=== PATIENT | female | born 1945 | race Caucasian/White ===

== ENCOUNTER 2016-09-26 06:36 | Day surgery (SDC) | payer MEDICAID, MEDICARE ==
[2016-09-26 07:02] VITALS: BP 162/77
== END 2016-09-26 08:17 | disposition other institution (70) ==
LOC: JP.SDS 06:36
PROVIDERS: ATTEND Surgery
DX: Z43.1 Encounter for attention to gastrostomy (principal); Z53.8 Procedure and treatment not carried out for other reasons; Z88.8 Allergy status to other drugs, medicaments and biological substances; Z87.891 Personal history of nicotine dependence; Z79.899 Other long term (current) drug therapy

== ENCOUNTER 2017-08-27 16:44 | Inpatient (IN) | payer MEDICARE ==
[2017-08-27] MEDS ORDERED: Prochlorperazine 10 MG/2 ML SDV IVPUSH ONE (17:22)
--- NOTE | 2017-08-27 17:29 | EDM.PDOC ---
ED HPI GENERAL MEDICAL PROBLEM - General Chief Complaint: Gastrointestinal Problem Stated Complaint: MEDICAL VIA [facility] Time Seen by Provider: 08/27/17 17:00 Source of Information: Reports: Patient, EMS History Limitations: Reports: No Limitations - History of Present Illness INITIAL COMMENTS - FREE TEXT/NARRATIVE: 72-year-old female that has a chronic G-tube after jaw and facial surgery, has been having abdominal pain and discomfort across the upper abdomen for several days, with 2 days of nausea and vomiting. She has an appointment with the surgery tomorrow to assess the G-tube, but developed persistent nausea and vomiting over the past 36 hours. She does not present a septic, is not hypotensive severe tachypneic and has no significant fever. She is uncomfortable. When asked if her bowels are moving she just says "I don't know". Onset: Gradual (Over the past several days) Severity: Moderate Associated Symptoms: Reports: Loss of Appetite, Malaise, Nausea/Vomiting. Denies: Chest Pain, Cough, Diaphoresis Middle Abdomen Pain Score (Numeric/FACES): 10 - Related Data Allergies Allergy/AdvReac Type Severity Reaction Status Date / Time ondansetron Allergy Rash Verified 09/26/16 06:47 hydrochlorothiazide AdvReac Nausea Verified 09/26/16 06:47 Home Meds: Home Meds Losartan [Cozaar] 100 mg PO DAILY 06/26/16 [History] fentaNYL [Fentanyl] 100 mcg TOP Q72H 06/26/16 [History] Aspirin [Ecotrin] 81 mg PO DAILY 06/30/16 [History] Cyanocobalamin (Vitamin B12) [Vitamin B12] 1,000 mcg IM ASDIRECTED 06/30/16 [ History] Hypromellose [Genteal Mild] 1 drop EYEBOTH BEDTIME 06/30/16 [History] Loperamide [Imodium] 2 mg PO DAILY 06/30/16 [History] Pravastatin Sodium [Pravachol] 20 mg PO BEDTIME 06/30/16 [History] Prochlorperazine Maleate [Compazine] 10 mg PO Q6H PRN 06/30/16 [History] Scopolamine [Transderm-Scop] 1 patch TOP ASDIRECTED 06/30/16 [History] Acetaminophen [Tylenol] 650 mg PO Q4H PRN #0 tablet 07/07/16 [Rx] Acetaminophen/HYDROcodone [[place] 325-10 MG] 1 tab PO Q4H PRN #30 tablet [Rx] Sucralfate [Carafate] 0.5 gm PO QID #100 ml 07/07/16 [Rx] Bevzi-N-Vpjkhqhwacyax [Beano] 2 tab PO QID 09/22/16 [History] Gabapentin [Neurontin] 300 mg PO TID 09/22/16 [History] Omeprazole Magnesium [Prilosec Otc] 40 mg PO DAILY 09/22/16 [History] Clotrimazole [Clotrimazole 1%] 1 applic TOP BID 09/26/16 [History] Potassium Chloride [Potassium Chloride Solution] 20 meq GTUBE DAILY 09/26/16 [ History] Propranolol HCl [Inderal Xl] 120 mg PO TID 08/27/17 [History] Past Medical History HEENT History: Reports: Cataract, Impaired Vision Cardiovascular History: Reports: High Cholesterol, Hypertension Gastrointestinal History: Reports: Chronic Constipation, Chronic Diarrhea Genitourinary History: Reports: None 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: Dysfunctional Uterine Bleeding, , Other (See Below) Other OB/BYN History: hysterectomy - ovaries remain she thinks Musculoskeletal History: Reports: Back Pain, Chronic Other Musculoskeletal History: 4 back surgeries - herniated discs Neurological History: Reports: None Hematologic History: Reports: B12 Deficiency Other Oncologic History: oral cancer - questionable smoking - Infectious Disease History Infectious Disease History: Reports: Chicken Pox, Measles, Mumps Other Infectious Disease History: does not remember - Past Surgical History Female Surgical History: Reports: Hysterectomy Neurological Surgical History: Reports: Lumbar Spine Social & Family History - Family History Family Medical History: Noncontributory - Tobacco Use Smoking Status *Q: Former Smoker Years of Tobacco use: 1 Used Tobacco, but Quit: Yes Month/Year Tobacco Last Used: many years ago Second Hand Smoke Exposure: No - Caffeine Use Caffeine Use: Reports: None - Recreational Drug Use Recreational Drug Use: No ED ROS GENERAL - Review of Systems Review Of Systems: See Below Constitutional: Reports: Malaise, Weakness. 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 No: Tachycardia GI/Abdominal Exam: Soft, Tender (Patient has significant tenderness to palpation over the entire abdomen, seems to be more across the upper abdomen), Abnormal Bowel Sounds (Bowel sounds are hypoactive but present), Other (G-tube is in place, there appears to be no inflammation or significant redness at the G -tube port) Extremities: Pedal Edema (trace bilateral edema) Neurological: Alert, Oriented, No Motor/Sensory Deficits Psychiatric: Flat Affect Skin Exam: Warm, Dry Course - Vital Signs Last Recorded V/S: Last Vital Signs Temp 99.0 F 08/28/17 02:55 Pulse 66 08/28/17 02:55 Resp 16 08/28/17 02:55 BP 145/70 H 08/28/17 02:55 Pulse Ox 96 08/28/17 02:55 - Orders/Labs/Meds Orders: Active Orders 24 hr Category Date Time Status Abdomen 2V AP Flat Upright [CR] Stat Exams 08/27/17 17:19 Taken UA W/MICROSCOPIC [URIN] Stat Lab 08/27/17 20:08 Ordered Sodium Chloride 0.9% [Normal Saline] 1,000 ml Med 08/27/17 20:15 Active IV ASDIRECTED Medication Orders Albuterol (Proventil Neb Soln) 2.5 mg NEB Q4H PRN PRN Reason: Shortness Of Breath/wheezing Albuterol/Ipratropium (Duoneb 3.0-0.5 Mg/3 Ml) 3 ml NEB QID PRN PRN Reason: Shortness Of Breath/wheezing Clotrimazole (Lotrimin Af 1% Crm) 0 gm TOP BID GADIEL Last Admin: 08/27/17 21:55 Dose: 1 applic Fentanyl (Duragesic) 100 mcg TOP Q72H GADIEL Sodium Chloride (Normal Saline) 1,000 mls @ 100 mls/hr IV ASDIRECTED GADIEL Last Admin: 08/28/17 06:26 Dose: 100 mls/hr Infusion: 08/28/17 06:14 Dose: 100 mls/hr Admin: 08/27/17 20:14 Dose: 100 mls/hr Ampicillin Sodium/Sulbactam (Sodium 1.5 gm/ Sodium Chloride) 50 mls @ 100 mls/ hr IV Q6H GADILE Last Admin: 08/28/17 03:02 Dose: 100 mls/hr Admin: 08/27/17 21:56 Dose: 100 mls/hr Prochlorperazine Edisylate 5 (mg/ Sodium Chloride) 51 mls @ 150 mls/hr IV Q6H PRN PRN Reason: Nausea/Vomiting Lorazepam (Ativan) 1 mg IV Q6H PRN PRN Reason: Nausea/Vomiting Losartan Potassium (Cozaar) 100 mg PO DAILY [facility] Morphine Sulfate (Morphine) 2 mg IVPUSH Q2H PRN PRN Reason: Abdominal Pain Last Admin: 08/27/17 21:54 Dose: 2 mg Non-Formulary Medication (Hypromellose [Genteal Mild]) 1 drop EYEBOTH BEDTIME [facility] Non-Formulary Medication (Propranolol Hcl [Inderal Xl]) 120 mg PO TID [facility] Pantoprazole Sodium (Protonix Iv) 40 mg IV DAILY [facility] Last Admin: 08/27/17 21:56 Dose: 40 mg Scopolamine (Transderm-Scop) mg TOP ASDIRECTED [facility] Zolpidem Tartrate (Ambien) 5 mg PO BEDTIME PRN PRN Reason: Sleep Labs: Laboratory Tests 08/27/17 08/27/17 08/27/17 Range/Units 17:19 17:19 17:50 WBC 13.8 H (4.5-11.0) K/uL RBC 5.63 H (3.30-5.50) M/uL Hgb 15.3 H D (12.0-15.0) g/dL Hct 43.4 (36.0-48.0) % MCV 77 L (80-98) fL MCH 27 (27-31) pg MCHC 35 (32-36) % Plt Count 223 (150-400) K/uL Neut % (Auto) 79 H (36-66) % Lymph % (Auto) 8 L (24-44) % [place] % (Auto) 7 H (2-6) % Eos % (Auto) 6 H (2-4) % Baso % (Auto) 0 (0-1) % Sodium 136 L (140-148) mmol/L Potassium 3.6 (3.6-5.2) mmol/L Chloride 101 (100-108) mmol/L Carbon Dioxide 20 L (21-32) mmol/L Anion Gap 18.6 H (5.0-14.0) mmol/L BUN 24 H D (7-18) mg/dL Creatinine 1.1 H D (0.6-1.0) mg/dL Est Cr Clr Drug Dosing TNP Estimated GFR (MDRD) 49 L (>60) Glucose 117 H (74-106) mg/dL Lactic Acid 1.9 (0.4-2.0) mmol/L Calcium 9.4 D (8.5-10.1) mg/dL Total Bilirubin 1.0 D (0.2-1.0) mg/dL AST 22 (15-37) U/L ALT 13 (12-78) U/L Alkaline Phosphatase 162 H (46-116) U/L Total Protein 8.7 H (6.4-8.2) g/dL Albumin 3.2 L (3.4-5.0) g/dL Globulin 5.5 H (2.3-3.5) g/dL Albumin/Globulin Ratio 0.6 L (1.2-2.2) Amylase 64 (25-115) U/L Lipase 113 (73-393) U/L Urine Color Urine Appearance Urine pH (4.5-8.0) Ur Specific [place] (1.008-1.030) Urine Protein (NEGATIVE) mg/dL Urine Glucose (UA) (NEGATIVE) mg/dL Urine Ketones (NEGATIVE) mg/dL Urine Occult Blood (NEGATIVE) Urine Nitrite (NEGATIVE) Urine Bilirubin (NEGATIVE) Urine Urobilinogen (NORMAL) mg/dL Ur Leukocyte Esterase (NEGATIVE) Urine RBC (0-5) Urine WBC (0-5) Ur Epithelial Cells Amorphous Sediment Urine Bacteria Urine Mucus 08/27/17 Range/Units 20:08 WBC (4.5-11.0) K/uL RBC (3.30-5.50) M/uL Hgb (12.0-15.0) g/dL Hct (36.0-48.0) % MCV (80-98) fL MCH (27-31) pg MCHC (32-36) % Plt Count (150-400) K/uL Neut % (Auto) (36-66) % Lymph % (Auto) (24-44) % [place] % (Auto) (2-6) % Eos % (Auto) (2-4) % Baso % (Auto) (0-1) % Sodium (140-148) mmol/L Potassium (3.6-5.2) mmol/L Chloride (100-108) mmol/L Carbon Dioxide (21-32) mmol/L Anion Gap (5.0-14.0) mmol/L BUN (7-18) mg/dL Creatinine (0.6-1.0) mg/dL Est Cr Clr Drug Dosing Estimated GFR (MDRD) (>60) Glucose (74-106) mg/dL Lactic Acid (0.4-2.0) mmol/L Calcium (8.5-10.1) mg/dL Total Bilirubin (0.2-1.0) mg/dL AST (15-37) U/L ALT (12-78) U/L Alkaline Phosphatase (46-116) U/L Total Protein (6.4-8.2) g/dL Albumin (3.4-5.0) g/dL Globulin (2.3-3.5) g/dL Albumin/Globulin Ratio (1.2-2.2) Amylase (25-115) U/L Lipase (73-393) U/L Urine Color Yellow Urine Appearance Slightly cloudy Urine pH 7.0 (4.5-8.0) Ur Specific [place] 1.010 (1.008-1.030) Urine Protein 30 H (NEGATIVE) mg/dL Urine Glucose (UA) Normal (NEGATIVE) mg/dL Urine Ketones 15 H (NEGATIVE) mg/dL Urine Occult Blood Negative (NEGATIVE) Urine Nitrite Negative (NEGATIVE) Urine Bilirubin Negative (NEGATIVE) Urine Urobilinogen Normal (NORMAL) mg/dL Ur Leukocyte Esterase Negative (NEGATIVE) Urine RBC 0-5 (0-5) Urine WBC 0-5 (0-5) Ur Epithelial Cells Not seen Amorphous Sediment Few Urine Bacteria Not seen Urine Mucus Not seen Meds: Medications Generic Name Dose Route Start Last Admin Trade Name Freq PRN Reason Stop Dose Admin Albuterol 2.5 mg 08/27/17 21:15 Proventil Neb Soln NEB Q4H PRN Shortness Of Breath/wheezing Albuterol/Ipratropium 3 ml 08/27/17 21:15 Duoneb 3.0-0.5 Mg/3 Ml NEB QID PRN Shortness Of Breath/wheezing Clotrimazole 0 gm 08/27/17 21:15 08/27/17 21:55 Lotrimin Af 1% Crm TOP 1 applic BID GADIEL Administration Fentanyl 100 mcg 08/28/17 13:10 Duragesic TOP Q72H GADIEL Sodium Chloride 1,000 mls @ 100 mls/hr 08/27/17 20:15 08/28/17 06:26 Normal Saline IV 100 mls/hr ASDIRECTED GADIEL Administration Ampicillin Sodium/Sulbactam 50 mls @ 100 mls/hr 08/27/17 21:00 08/28/17 03:02 Sodium 1.5 gm/ Sodium Chloride IV 100 mls/hr Q6H GADIEL Administration Prochlorperazine Edisylate 5 51 mls @ 150 mls/hr 08/27/17 21:15 mg/ Sodium Chloride IV Q6H PRN Nausea/Vomiting Lorazepam 1 mg 08/27/17 21:15 Ativan IV Q6H PRN Nausea/Vomiting Losartan Potassium 100 mg 08/28/17 09:00 Cozaar PO DAILY GADIEL Morphine Sulfate 2 mg 08/27/17 21:15 08/27/17 21:54 Morphine IVPUSH 2 mg Q2H PRN Administration Abdominal Pain Non-Formulary Medication 1 drop 08/27/17 21:15 Hypromellose [Genteal Mild] EYEBOTH BEDTIME GADIEL Non-Formulary Medication 120 mg 08/27/17 21:15 Propranolol Hcl [Inderal Xl] PO TID GADIEL Pantoprazole Sodium 40 mg 08/27/17 21:15 08/27/17 21:56 Protonix Iv IV 40 mg DAILY GADIEL Administration Scopolamine mg 08/27/17 21:15 Transderm-Scop TOP ASDIRECTED GADIEL Zolpidem Tartrate 5 mg 08/27/17 21:15 Ambien PO BEDTIME PRN Sleep Discontinued Medications Generic Name Dose Route Start Last Admin Trade Name Shruthi PRN Reason Stop Dose Admin Sodium Chloride 1,000 mls @ 500 mls/hr 08/27/17 17:30 08/27/17 17:57 Normal Saline IV 500 mls/hr ASDIRECTED GADIEL Administration Labetalol HCl 10 mg 08/27/17 19:18 08/27/17 19:26 Normodyne IVPUSH 08/27/17 19:19 10 mg ONETIME ONE Administration Protocol Prochlorperazine Edisylate 5 mg 08/27/17 17:22 08/27/17 17:57 Compazine IVPUSH 08/27/17 17:23 5 mg ONETIME ONE Administration Propranolol HCl 120 mg 08/27/17 19:20 08/27/17 19:53 Inderal La PO 08/27/17 19:21 120 mg ONETIME ONE Administration - Re-Assessments/Exams Free Text/Narrative Re-Assessment/Exam: 08/27/17 18:09 CBC, CMP, amylase and lipase were obtained and a two-view abdominal x-ray considering the CT scan is not functioning. The x-ray showed no evidence of bowel obstruction. 08/27/17 18:58 White count was mildly elevated at 13.8, hemoglobin normal baseline. Lactic acid was normal. Hydration was started and the patient was given 5 mg of Compazine. She felt markedly better. The abdominal x-ray did not show a pattern of obstruction. She'll be admitted by the hospitalist service for symptom management and a surgical consult with CT scan tomorrow. Departure - Departure Time of Disposition: 21:45 Disposition: Admitted As Inpatient 66 Condition: Fair Clinical Impression: Abdominal pain of unknown cause, Complication of feeding tube - Discharge Information - My Orders Last 24 Hours: My Active Orders 08/27/17 17:19 Abdomen 2V AP Flat Upright [CR] Stat - Assessment/Plan Last 24 Hours: My Active Orders 08/27/17 17:19 Abdomen 2V AP Flat Upright [CR] Stat
[2017-08-27] MEDS ORDERED: Sodium Chloride 0.9% 1,000 ML IV SCH (17:30)
[2017-08-27] MEDS ORDERED: Labetalol 20 MG/4 ML Syringe IVPUSH ONE (19:18)
[2017-08-27] MEDS ORDERED: Propranolol 60 MG Cap.ER PO ONE (19:20)
[2017-08-27] MEDS: Sodium Chloride 0.9% 1,000 ML IV SCH (20:14)
[2017-08-27] MEDS ORDERED: Prochlorperazine 5 MG in Sodium Chloride 0.9% 50 ML IV PRN (21:15)
[2017-08-27] MEDS ORDERED: LORazepam 2 MG/ML SDV IV PRN (21:15)
[2017-08-27] MEDS ORDERED: Albuterol 0.083% 2.5 MG/3 ML Neb Soln NEB PRN (21:15)
[2017-08-27] MEDS ORDERED: HYPROMELLOSE EYEBOTH SCH (21:15)
[2017-08-27] MEDS ORDERED: Albuterol/Ipratropium 3.0-0.5 MG/3 ML Neb Soln NEB PRN (21:15)
[2017-08-27] MEDS ORDERED: Scopolamine 1.5 MG Transdermal Patch TOP SCH (21:15)
--- NOTE | 2017-08-27 21:31 | PCM.HP ---
H&P History of Present Illness - General Admit Problem/Dx: Admission Diagnosis/Problem Admission Diagnosis/Problem Abdominal pain of unknown cause Source of Information: Patient, EMS, Assisted Records, Provider, RN History Limitations: Reports: No Limitations - History of Present Illness Initial Comments - Free Text/Narative: history of present Illness: 72-year-old female that has a chronic G-tube after jaw and facial surgery, has been having abdominal pain and discomfort across the upper abdomen for several days, with 2 days of nausea and vomiting. She has an appointment with the surgery tomorrow to assess the G-tube, but developed persistent nausea and vomiting over the past 36 hours. She does not present a septic, is not hypotensive severe tachypneic and has no significant fever. She is uncomfortable. When asked if her bowels are moving she just says "I don't know" . Elevated blood pressure at 218/136 also noted, report no blood pressure medication given today at [facility]. reports headache, dizziness, nausea. denies chest pain or shortness of breath. Onset: Gradual, Over the past 4 days. Severity: Moderate Associated Symptoms: Reports: Loss of Appetite, Malaise, Nausea/Vomiting. Denies: Chest Pain, Cough, Diaphoresis Middle Abdomen Pain Score (Numeric/FACES): 10 Imaging, labs, medication ER: White count was mildly elevated at 13.8, hemoglobin 15.3 normal baseline. Lactic acid 1.9, na+136, K+3.6, cl 101, anion gap 18.6, bun 24, cr 1.1, gluc 117 , amlyase 64, lipase 113, occult stool negative, urine cath +ketone, negative wbc, blood,leukocytes. The abdominal x-ray did not show a pattern of obstruction. CT scan tomorrow. Hydration was started and the patient was given 5 mg of Compazine. She felt markedly better. given Labetolal 10 mg IV, Propranolol 120mg po, blood pressure at 162/81 admitted by the hospitalist service. Onset of Symptoms: Reports: Gradual Duration of Symptoms: Reports: Day(s): (3) Location: Reports: Abdomen, Generalized (weakness) Severity: Moderate Improves with: Reports: None Worsens with: Reports: Eating (unable to eat due to nausea and vomiting) Associated Symptoms: Reports: Headaches, Nausea/Vomiting, Weakness Middle Abdomen Pain Score (Numeric/FACES): 10 - Related Data Allergies/Adverse Reactions: Allergies Allergy/AdvReac Type Severity Reaction Status Date / Time ondansetron Allergy Rash Verified 09/26/16 06:47 hydrochlorothiazide AdvReac Nausea Verified 09/26/16 06:47 Home Medications: Home Meds Losartan [Cozaar] 100 mg PO DAILY 06/26/16 [History] fentaNYL [Fentanyl] 100 mcg TOP Q72H 06/26/16 [History] Aspirin [Ecotrin] 81 mg PO DAILY 06/30/16 [History] Cyanocobalamin (Vitamin B12) [Vitamin B12] 1,000 mcg IM ASDIRECTED 06/30/16 [ History] Hypromellose [Genteal Mild] 1 drop EYEBOTH BEDTIME 06/30/16 [History] Loperamide [Imodium] 2 mg PO DAILY 06/30/16 [History] Pravastatin Sodium [Pravachol] 20 mg PO BEDTIME 06/30/16 [History] Prochlorperazine Maleate [Compazine] 10 mg PO Q6H PRN 06/30/16 [History] Scopolamine [Transderm-Scop] 1 patch TOP ASDIRECTED 06/30/16 [History] Acetaminophen [Tylenol] 650 mg PO Q4H PRN #0 tablet 07/07/16 [Rx] Acetaminophen/HYDROcodone [[place] 325-10 MG] 1 tab PO Q4H PRN #30 tablet [Rx] Sucralfate [Carafate] 0.5 gm PO QID #100 ml 07/07/16 [Rx] Argfa-J-Nbrixvyyiuflk [Beano] 2 tab PO QID 09/22/16 [History] Gabapentin [Neurontin] 300 mg PO TID 09/22/16 [History] Omeprazole Magnesium [Prilosec Otc] 40 mg PO DAILY 09/22/16 [History] Clotrimazole [Clotrimazole 1%] 1 applic TOP BID 09/26/16 [History] Potassium Chloride [Potassium Chloride Solution] 20 meq GTUBE DAILY 09/26/16 [ History] Propranolol HCl [Inderal Xl] 120 mg PO TID 08/27/17 [History] Past Medical History HEENT History: Reports: Cataract, Impaired Vision Cardiovascular History: Reports: High Cholesterol, Hypertension Gastrointestinal History: Reports: Chronic Constipation, Chronic Diarrhea Genitourinary History: Reports: None [employer]CH[employer]ICIAN History: Reports: Dysfunctional Uterine Bleeding, , Other (See Below) Other OB/BYN History: hysterectomy - ovaries remain she thinks Musculoskeletal History: Reports: Back Pain, Chronic Other Musculoskeletal History: 4 back surgeries - herniated discs Neurological History: Reports: None Hematologic History: Reports: B12 Deficiency Other Oncologic History: oral cancer - questionable smoking - Infectious Disease History Infectious Disease History: Reports: Chicken Pox, Measles, Mumps Other Infectious Disease History: does not remember - Past Surgical History Female Surgical History: Reports: Hysterectomy Neurological Surgical History: Reports: Lumbar Spine Social & Family History - Family History Family Medical History: Noncontributory - Tobacco Use Smoking Status *Q: Former Smoker Years of Tobacco use: 1 Used Tobacco, but Quit: Yes Month/Year Tobacco Last Used: many years ago Second Hand Smoke Exposure: No - Caffeine Use Caffeine Use: Reports: None - Recreational Drug Use Recreational Drug Use: No H&P Review of Systems - Review of Systems: Review Of Systems: See Below General: Reports: Weakness HEENT: Reports: Headaches, Other (hx of jaw and neck cancer) Pulmonary: Reports: No Symptoms Cardiovascular: Reports: No Symptoms Gastrointestinal: Reports: Abdominal Pain, Decreased Appetite, Difficulty Swallowing (feeding tube), Nausea Genitourinary: Reports: No Symptoms Musculoskeletal: Reports: No Symptoms Skin: Reports: Pallor, Other (very pale, cheeks flushed) Psychiatric: Reports: No Symptoms Neurological: Reports: No Symptoms Hematologic/Lymphatic: Reports: No Symptoms Immunologic: Reports: No Symptoms Exam - Exam Exam: See Below - Vital Signs Vital Signs: Last Vital Signs Temp 36.9 C 08/27/17 21:18 Pulse 72 08/27/17 21:18 Resp 18 08/27/17 21:18 BP 163/78 H 08/27/17 21: Pulse Ox 95 08/27/17 21:18 Weight: 61 kg - Exam General: Alert, Cooperative, Mild Distress HEENT: PERRLA, Conjunctiva Clear, EACs Clear, Hearing Intact, Nares Patent, Other (bilateral ear lobe infection). No: Mucosa Moist & [place] (lips dry and chapped, oral cavity dry) Neck: Other (atrophic right side facial structures due to past surgeries.) Lungs: Clear to Auscultation, Normal Respiratory Effort Cardiovascular: Regular Rate, Regular Rhythm, Normal S1, Normal S2 GI/Abdominal Exam: Normal Bowel Sounds, Other (Soft, Tender (Patient has significant tenderness to palpation over the entire abdomen, seems to be more across the upper abdomen), Abnormal Bowel Sounds (Bowel sounds are hypoactive but present), Other (G-tube is in place, there appears to be no inflammation or significant redness at the G-tube port)) (Female) Exam: Normal External Exam Rectal (Female) Exam: Normal Exam, Normal Rectal Tone, Heme - Stool Back Exam: Normal Inspection Extremities: Normal Inspection, No Pedal Edema, Normal Capillary Refill Peripheral Pulses: 2+: Radial (L), Radial (R), Posterior Tibial (R), Dorsalis Pedis (L) Skin: Warm, Dry, Intact Neurological: Reflexes Equal Bilateral, Strength Equal Bilateral, Other (pre- existing deficits) Neuro Extensive - Mental Status: Alert, Normal Mood/Affect, Normal Cognition Neuro Extensive - Motor, Sensory, Reflexes: Motor/Sensory Deficits Psychiatric: Alert, Normal Affect, Normal Mood - Patient Data Lab Results Last 24 hrs: Laboratory Results - last 24 hr 08/27/17 08/27/17 08/27/17 Range/Units 17:19 17:19 17:50 WBC 13.8 H (4.5-11.0) K/uL RBC 5.63 H (3.30-5.50) M/uL Hgb 15.3 H D (12.0-15.0) g/dL Hct 43.4 (36.0-48.0) % MCV 77 L (80-98) fL MCH 27 (27-31) pg MCHC 35 (32-36) % Plt Count 223 (150-400) K/uL Neut % (Auto) 79 H (36-66) % Lymph % (Auto) 8 L (24-44) % [place] % (Auto) 7 H (2-6) % Eos % (Auto) 6 H (2-4) % Baso % (Auto) 0 (0-1) % Sodium 136 L (140-148) mmol/L Potassium 3.6 (3.6-5.2) mmol/L Chloride 101 (100-108) mmol/L Carbon Dioxide 20 L (21-32) mmol/L Anion Gap 18.6 H (5.0-14.0) mmol/L BUN 24 H D (7-18) mg/dL Creatinine 1.1 H D (0.6-1.0) mg/dL Est Cr Clr Drug Dosing TNP Estimated GFR (MDRD) 49 L (>60) Glucose 117 H (74-106) mg/dL Lactic Acid 1.9 (0.4-2.0) mmol/L Calcium 9.4 D (8.5-10.1) mg/dL Total Bilirubin 1.0 D (0.2-1.0) mg/dL AST 22 (15-37) U/L ALT 13 (12-78) U/L Alkaline Phosphatase 162 H (46-116) U/L Total Protein 8.7 H (6.4-8.2) g/dL Albumin 3.2 L (3.4-5.0) g/dL Globulin 5.5 H (2.3-3.5) g/dL Albumin/Globulin Ratio 0.6 L (1.2-2.2) Amylase 64 (25-115) U/L Lipase 113 (73-393) U/L Urine Color Urine Appearance Urine pH (4.5-8.0) Ur Specific [place] (1.008-1.030) Urine Protein (NEGATIVE) mg/dL Urine Glucose (UA) (NEGATIVE) mg/dL Urine Ketones (NEGATIVE) mg/dL Urine Occult Blood (NEGATIVE) Urine Nitrite (NEGATIVE) Urine Bilirubin (NEGATIVE) Urine Urobilinogen (NORMAL) mg/dL Ur Leukocyte Esterase (NEGATIVE) Urine RBC (0-5) Urine WBC (0-5) Ur Epithelial Cells Amorphous Sediment Urine Bacteria Urine Mucus 08/27/17 Range/Units 20:08 WBC (4.5-11.0) K/uL RBC (3.30-5.50) M/uL Hgb (12.0-15.0) g/dL Hct (36.0-48.0) % MCV (80-98) fL MCH (27-31) pg MCHC (32-36) % Plt Count (150-400) K/uL Neut % (Auto) (36-66) % Lymph % (Auto) (24-44) % Dent % (Auto) (2-6) % Eos % (Auto) (2-4) % Baso % (Auto) (0-1) % Sodium (140-148) mmol/L Potassium (3.6-5.2) mmol/L Chloride (100-108) mmol/L Carbon Dioxide (21-32) mmol/L Anion Gap (5.0-14.0) mmol/L BUN (7-18) mg/dL Creatinine (0.6-1.0) mg/dL Est Cr Clr Drug Dosing Estimated GFR (MDRD) (>60) Glucose (74-106) mg/dL Lactic Acid (0.4-2.0) mmol/L Calcium (8.5-10.1) mg/dL Total Bilirubin (0.2-1.0) mg/dL AST (15-37) U/L ALT (12-78) U/L Alkaline Phosphatase (46-116) U/L Total Protein (6.4-8.2) g/dL Albumin (3.4-5.0) g/dL Globulin (2.3-3.5) g/dL Albumin/Globulin Ratio (1.2-2.2) Amylase (25-115) U/L Lipase (73-393) U/L Urine Color Yellow Urine Appearance Slightly cloudy Urine pH 7.0 (4.5-8.0) Ur Specific [place] 1.010 (1.008-1.030) Urine Protein 30 H (NEGATIVE) mg/dL Urine Glucose (UA) Normal (NEGATIVE) mg/dL Urine Ketones 15 H (NEGATIVE) mg/dL Urine Occult Blood Negative (NEGATIVE) Urine Nitrite Negative (NEGATIVE) Urine Bilirubin Negative (NEGATIVE) Urine Urobilinogen Normal (NORMAL) mg/dL Ur Leukocyte Esterase Negative (NEGATIVE) Urine RBC 0-5 (0-5) Urine WBC 0-5 (0-5) Ur Epithelial Cells Not seen Amorphous Sediment Few Urine Bacteria Not seen Urine Mucus Not seen Result Diagrams: 08/27/17 17:19 08/27/17 17:19 [place] Results Last 24 hrs: Microbiology 08/27/17 19:46 Stool Occult Blood ([place]) - Final Stool / Feces NEGATIVE OCCULT BLOOD - Problem List (1) Abdominal pain of unknown cause SNOMED Code(s): 654877945 ICD Code: R10.9 - UNSPECIFIED ABDOMINAL PAIN Status: Acute Priority: High Current Visit: Yes (2) Hypertension SNOMED Code(s): 05383403 ICD Code: I10 - ESSENTIAL (PRIMARY) HYPERTENSION Status: Acute Current Visit: Yes Qualifiers: Hypertension type: essential hypertension Qualified Code(s): I10 - Essential (primary) hypertension (3) Complication of feeding tube SNOMED Code(s): 182442908 ICD Code: K94.23 - GASTROSTOMY MALFUNCTION Status: Acute Priority: High Current Visit: Yes Problem Details: ostomy site with tenderness, fleshy tissue to patient right. Problem List Initiated/Reviewed/Updated: Yes Orders Last 24hrs: Active Orders 24 hr Category Date Time Status Patient Status [ADT] Routine ADT 08/27/17 21:15 Active Intake and Output [RC] QSHIFT Care 08/27/17 21:15 Active Notify Provider Vital Signs [RC] ASDIRECTED Care 08/27/17 21:15 Active Oxygen Therapy [RC] PRN Care 08/27/17 21:15 Active RT Aerosol Therapy [RC] ASDIRECTED Care 08/27/17 21:15 Active Up With Assistance [RC] ASDIRECTED Care 08/27/17 21:15 Active VTE/DVT Education [RC] Per Unit Routine Care 08/27/17 21:15 Active Vital Signs [RC] Q4H Care 08/27/17 21:15 Active Consult to Analyst Food And Beverage [CONS] Routine Cons 08/27/17 21:15 Active Consult to Spiritual Care [CONS] Routine Cons 08/27/17 21:15 Active OT Evaluation and Treatment [CONS] Routine Cons 08/27/17 21:15 Active PT Evaluation and Treatment [CONS] Routine Cons 08/27/17 21:15 Active Nothing per Oral Now Diet [DIET] Diet 08/27/17 Dinner Active Abdomen 2V AP Flat Upright [CR] Stat Exams 08/27/17 17:19 Taken Abdomen Pelvis wo Cont [CT] Stat Exams 08/27/17 21:15 Ordered BASIC METABOLIC PANEL,BMP [CHEM] AM Lab 08/28/17 05:11 Ordered CBC WITH AUTO DIFF [HEME] AM Lab 08/28/17 05:11 Ordered UA W/MICROSCOPIC [URIN] Stat Lab 08/27/17 20:08 Ordered Albuterol [Proventil Neb Soln] Med 08/27/17 21:15 Ordered 2.5 mg NEB Q4H PRN Albuterol/Ipratropium [DuoNeb 3.0-0.5 MG/3 ML] Med 08/27/17 21:15 Ordered 3 ml NEB QID PRN Ampicillin/Sulbactam Na [Unasyn] 1.5 gm Med 08/27/17 21:15 Ordered Sodium Chloride 0.9% [Normal Saline] 50 ml IV Q6H Clotrimazole [Lotrimin AF 1% Crm] Med 08/27/17 21:15 Ordered DOSE gm TOP BID Hypromellose [Genteal Mild] Med 08/27/17 21:15 Ordered 1 drop EYEBOTH BEDTIME LORazepam [Ativan] Med 08/27/17 21:15 Ordered 1 mg IV Q6H PRN Losartan [Cozaar] Med 08/28/17 09:00 Ordered 100 mg PO DAILY Morphine Med 08/27/17 21:15 Ordered 2 mg IVPUSH Q2H PRN Pantoprazole [ProTONIX IV] Med 08/27/17 21:15 Ordered 40 mg IV DAILY Prochlorperazine [Compazine] 5 mg Med 08/27/17 21:15 Ordered Sodium Chloride 0.9% [Normal Saline] 50 ml IV Q6H Propranolol HCl [Inderal Xl] Med 08/27/17 21:15 Ordered 120 mg PO TID Scopolamine [Transderm-Scop] Med 08/27/17 21:15 Ordered DOSE mg TOP ASDIRECTED Sodium Chloride 0.9% [Normal Saline] 1,000 ml Med 08/27/17 17:30 Active IV ASDIRECTED Sodium Chloride 0.9% [Normal Saline] 1,000 ml Med 08/27/17 20:15 Active IV ASDIRECTED Zolpidem [Ambien] Med 08/27/17 21:15 Ordered 5 mg PO BEDTIME PRN fentaNYL [Duragesic] Med 08/28/17 13:10 Ordered 100 mcg TOP Q72H Sequential Compression Device [OM.PC] Per Unit Routine Oth 08/27/17 21:15 Ordered Resuscitation Status Routine Resus Stat 08/27/17 20:30 Ordered Medication Orders Albuterol (Proventil Neb Soln) 2.5 mg NEB Q4H PRN PRN Reason: Shortness Of Breath/wheezing Albuterol/Ipratropium (Duoneb 3.0-0.5 Mg/3 Ml) 3 ml NEB QID PRN PRN Reason: Shortness Of Breath/wheezing Clotrimazole (Lotrimin Af 1% Crm) gm TOP BID GADIEL Fentanyl (Duragesic) 100 mcg TOP Q72H GADIEL Sodium Chloride (Normal Saline) 1,000 mls @ 500 mls/hr IV ASDIRECTED ON LICENSE OF [facility] Last Admin: 08/27/17 17:57 Dose: 500 mls/hr Sodium Chloride (Normal Saline) 1,000 mls @ 100 mls/hr IV ASDIRECTED ON LICENSE OF [facility] Last Admin: 08/27/17 20:14 Dose: 100 mls/hr Ampicillin Sodium/Sulbactam (Sodium 1.5 gm/ Sodium Chloride) 50 mls @ 100 mls/ hr IV Q6H GADIEL Prochlorperazine Edisylate 5 (mg/ Sodium Chloride) 51 mls @ 150 mls/hr IV Q6H PRN PRN Reason: Nausea/Vomiting Lorazepam (Ativan) 1 mg IV Q6H PRN PRN Reason: Nausea/Vomiting Morphine Sulfate (Morphine) 2 mg IVPUSH Q2H PRN PRN Reason: Abdominal Pain Non-Formulary Medication (Hypromellose [Genteal Mild]) 1 drop EYEBOTH BEDTIME ON LICENSE OF [facility] Non-Formulary Medication (Losartan [Cozaar]) 100 mg PO DAILY ON LICENSE OF [facility] Non-Formulary Medication (Propranolol Hcl [Inderal Xl]) 120 mg PO TID ON LICENSE OF [facility] Pantoprazole Sodium (Protonix Iv) 40 mg IV DAILY ON LICENSE OF [facility] Scopolamine (Transderm-Scop) mg TOP ASDIRECTED ON LICENSE OF [facility] Zolpidem Tartrate (Ambien) 5 mg PO BEDTIME PRN PRN Reason: Sleep Assessment/Plan Comment:: ASSESSMENT / PLAN -72-year-old female that has a chronic G-tube after jaw and facial surgery, has been having abdominal pain and discomfort across the upper abdomen for several days, with 2 days of nausea and vomiting. She has an appointment with the surgery tomorrow to assess the G-tube, but developed persistent nausea and vomiting over the past 36 hours. She does not present a septic, is not hypotensive severe tachypneic and has no significant fever. She is uncomfortable. When asked if her bowels are moving she just says "I don't know" . Elevated blood pressure at 218/136 also noted, report no blood pressure medication given today at [facility]. reports headache, dizziness, nausea. denies chest pain or shortness of breath. Onset: Gradual, Over the past 4 days. Severity: Moderate Associated Symptoms: Reports: Loss of Appetite, Malaise, Nausea/Vomiting. Denies: Chest Pain, Cough, Diaphoresis Middle Abdomen Pain Score (Numeric/FACES): 10 Imaging, labs, medication ER: White count was mildly elevated at 13.8, hemoglobin 15.3 normal baseline. Lactic acid 1.9, na+136, K+3.6, cl 101, anion gap 18.6, bun 24, cr 1.1, gluc 117 , amlyase 64, lipase 113, occult stool negative, urine cath +ketone, negative wbc, blood,leukocytes. The abdominal x-ray did not show a pattern of obstruction. CT scan tomorrow. Hydration was started and the patient was given 5 mg of Compazine. She felt markedly better. given Labetolal 10 mg IV, Propranolol 120mg po, blood pressure at 162/81 admitted by the hospitalist service. Abdominal Pain, unknown cause -Admit to [address] [place] [address] for further monitoring -IV Fluids for rehydration NS at 100 mL per hour -IV Antibiotic: Unasyn 1.5 gram IV every 6 hours -IV Protonix 40 mg daily, first dose tonight -NPO -Advise to notify nurses of any chest pain or other symptoms -imaging; CT scan Abdomen-pelvis pending. -And a.m. labs: CBC, BMP, lactic acid Feeding Tube -Patient is able to eat and swallow pills per [facility]. -feeding tube care and cleaning -evaluation by Surgery Hypertension -restart medication -monitor closely. Maintenance issues -Orders home meds: oral medication on hold -Nutrition: NPO diet -Goncalves catheter not indicated at this time -DVT: SCD -PPI: IV Protonix 40mg daily -consult OT for discharge planning -consult PT for strengthening. -consult Spiritual CODE STATUS: DNR/DNI Admission status: Admit to [address] [place] [address] Admission justification. This patient will be admitted for inpatient services and is medically appropriate meeting medical necessity for inpatient admission as outlined in my documentation. I reasonably expect the patient will require inpatient services that span. Time over 2 midnights. I reasonably expect this patient to be discharged or transferred within 96 hours after admission to the critical access hospital. Disposition: Assisted Living vs Assisted Placement Primary care provider: Dr. Reddy Hospitalist: Dr. Kerns
[2017-08-27] MEDS: Morphine 2 MG/ML Syringe IVPUSH PRN (21:54)
[2017-08-27] MEDS: Clotrimazole 1% Crm 30 GM Tube TOP SCH (21:55)
[2017-08-27] MEDS: Pantoprazole 40 MG Vial IV SCH (21:56)
[2017-08-27] MEDS: Ampicillin/Sulbactam Na 1.5 GM in Sodium Chloride 0.9% 50 ML IV SCH (21:56)
[2017-08-28] MEDS: Ampicillin/Sulbactam Na 1.5 GM in Sodium Chloride 0.9% 50 ML IV SCH ×4 (03:02→20:50)
[2017-08-28] MEDS: Sodium Chloride 0.9% 1,000 ML IV SCH ×2 (06:26→17:02)
[2017-08-28] MEDS: Morphine 2 MG/ML Syringe IVPUSH PRN ×4 (07:41→13:56)
[2017-08-28] MEDS: VERIFY FENTANYL PATCH TOP SCH ×2 (08:30→20:51)
[2017-08-28] MEDS: Pantoprazole 40 MG Vial IV SCH ×2 (08:42→20:46)
[2017-08-28] MEDS: Clotrimazole 1% Crm 30 GM Tube TOP SCH ×2 (08:44→20:39)
--- NOTE | 2017-08-28 08:45 | CT ---
Abdomen Pelvis wo Cont HISTORY: abdominal pain; N/V Axial spiral noncontrasted CT scan of the abdomen and pelvis was obtained along with coronal reconstr uctions. Auto dosage and iterative reconstruction techniques were employed. FINDINGS: There is mild interstitial prominence at the lung bases which could represent fibrotic bhardwaj ges. Heart size is within normal limits. No pleural fluid is seen. There is scattered atherosclerotic vascular calcification. Abdominal aorta is not dilated. No obvious focal abnormality of the liver, s pleen, pancreas, or adrenal glands is identified. Gallbladder is not visualized and may be surgically absent. There is extrahepatic biliary duct dilata tion. Common hepatic duct measures 17 mm in diameter. Distal common duct obstruction is not excluded. No obvious common duct stone can be seen. A couple of nonobstructing calculi measuring 2-3 mm in size are noted lower pole left kidney. No obvi ous renal mass or hydronephrosis can be seen. No ureteral calculi or ureteral dilatation are identifi ed. No pelvic mass or abnormal fluid collections are seen. I see no pelvic, retroperitoneal, or mesenteri c adenopathy. I see no signs of appendicitis or diverticulitis. No free air or free fluid is seen. Ol d anterior posterior fusion changes are noted lumbosacral spine. Bone graft harvest site is noted rig ht ilium. IMPRESSION: 1. Gallbladder is not visualized and may be surgically absent. Extrahepatic biliary ducts aren't dila chriss. Common bile duct measures up to 17 mm. I cannot exclude distal common duct obstruction. 2. Scattered atherosclerotic vascular calcification. 3. A couple of tiny nonobstructing calculi are noted lower pole left kidney. No obstructing renal or ureteral calculi are seen. 4. Gastrostomy tube is noted. 5. Old anterior and posterior fusion changes lumbosacral spine.
--- NOTE | 2017-08-28 08:51 | CR ---
Abdomen 2V AP Flat Upright HISTORY: pain FINDINGS: Bony structures are osteopenic. No fractures identified. There is anterior bone plug fusion at L5-S1. Posterior bone graft material can be seen. Scattered atherosclerotic calcification is note d. Gastrostomy tube overlies the stomach. Bowel gas pattern is nonspecific. No obstruction or free air is identified. No soft tissue mass organ omegaly is seen. Lung bases are clear. IMPRESSION: 1. Nonspecific bowel gas pattern. 2. Scattered atherosclerotic vascular calcification. 3. Old anterior posterior fusion changes lower lumbar spine. 4. Gastrostomy tube is noted.
[2017-08-28] MEDS: Losartan 50 MG Tab PO SCH (10:17)
[2017-08-28] MEDS: Propranolol 40 MG Tab PO SCH ×3 (10:17→20:38)
[2017-08-28] MEDS: Potassium Chloride 20 MEQ, Lidocaine 1% 2 ML in Sodium Chloride 0.9% 100 ML IV SCH ×2 (10:18→12:19)
[2017-08-28] MEDS: Scopolamine 1.5 MG Transdermal Patch TRDERM SCH (12:19)
[2017-08-28] MEDS ORDERED: fentaNYL 75 MCG/HR Transdermal Patch TOP SCH (13:10)
[2017-08-28] MEDS ORDERED: LORazepam 2 MG/ML SDV IV PRN (13:16)
--- NOTE | 2017-08-28 13:32 | PCM.PN ---
- General Info Date of Service: 08/28/17 Subjective Update: This patient is a 72-year-old woman with a history of head and neck cancer, status post extensive surgery. She has had some ongoing difficulty with swallowing and for this reason a PEG feeding tube has been placed. Over the last 3 days prior to admission had developed right upper quadrant abdominal pain associated with nausea and vomiting. On evaluation in the emergency department white blood cell count was moderately elevated. She was admitted and given IV fluids for hydration and has been kept nothing by mouth. Pain medication and anti-medic therapy been used and she reports she is more comfortable but continues to experience pain. White blood cell count has normalized this morning and she has remained afebrile as well as hemodynamic stable. CT scan of the abdomen was imaged obtained showing absence of the gallbladder as well as some dilatation of the intra-and extrahepatic bile ducts , obstructing process could not be ruled out. Functional Status: Reports: Urinating - Review of Systems General: Reports: Weakness. Denies: Fever, Chills Pulmonary: Reports: No Symptoms Cardiovascular: Reports: No Symptoms Gastrointestinal: Reports: Abdominal Pain. Denies: Constipation, Diarrhea, Difficulty Swallowing, Nausea, Vomiting - Patient Data Vitals - Most Recent: Last Vital Signs Temp 99.1 F 08/28/17 10:38 Pulse 69 08/28/17 10:38 Resp 16 08/28/17 10:38 BP 156/64 H 08/28/17 10:38 Pulse Ox 96 08/28/17 10:38 Weight - Most Recent: 134 lb 7.712 oz I&O - Last 24 Hours: Intake & Output 08/27/17 08/28/17 08/28/17 22:59 06:59 14:59 Intake Total 829 340 Output Total 600 800 Balance 229 -460 Lab Results Last 24 Hours: Laboratory Results - last 24 hr 08/27/17 08/27/17 08/27/17 Range/Units 17:19 17:19 17:50 WBC 13.8 H (4.5-11.0) K/uL RBC 5.63 H (3.30-5.50) M/uL Hgb 15.3 H D (12.0-15.0) g/dL Hct 43.4 (36.0-48.0) % MCV 77 L (80-98) fL MCH 27 (27-31) pg MCHC 35 (32-36) % Plt Count 223 (150-400) K/uL Neut % (Auto) 79 H (36-66) % Lymph % (Auto) 8 L (24-44) % [place] % (Auto) 7 H (2-6) % Eos % (Auto) 6 H (2-4) % Baso % (Auto) 0 (0-1) % Sodium 136 L (140-148) mmol/L Potassium 3.6 (3.6-5.2) mmol/L Chloride 101 (100-108) mmol/L Carbon Dioxide 20 L (21-32) mmol/L Anion Gap 18.6 H (5.0-14.0) mmol/L BUN 24 H D (7-18) mg/dL Creatinine 1.1 H D (0.6-1.0) mg/dL Est Cr Clr Drug Dosing TNP Estimated GFR (MDRD) 49 L (>60) Glucose 117 H (74-106) mg/dL Lactic Acid 1.9 (0.4-2.0) mmol/L Calcium 9.4 D (8.5-10.1) mg/dL Total Bilirubin 1.0 D (0.2-1.0) mg/dL AST 22 (15-37) U/L ALT 13 (12-78) U/L Alkaline Phosphatase 162 H (46-116) U/L Total Protein 8.7 H (6.4-8.2) g/dL Albumin 3.2 L (3.4-5.0) g/dL Globulin 5.5 H (2.3-3.5) g/dL Albumin/Globulin Ratio 0.6 L (1.2-2.2) Amylase 64 (25-115) U/L Lipase 113 (73-393) U/L Urine Color Urine Appearance Urine pH (4.5-8.0) Ur Specific [place] (1.008-1.030) Urine Protein (NEGATIVE) mg/dL Urine Glucose (UA) (NEGATIVE) mg/dL Urine Ketones (NEGATIVE) mg/dL Urine Occult Blood (NEGATIVE) Urine Nitrite (NEGATIVE) Urine Bilirubin (NEGATIVE) Urine Urobilinogen (NORMAL) mg/dL Ur Leukocyte Esterase (NEGATIVE) Urine RBC (0-5) Urine WBC (0-5) Ur Epithelial Cells Amorphous Sediment Urine Bacteria Urine Mucus 08/27/17 08/28/1708/28/18 Range/Units 20:08 05:15 05:15 WBC 10.5 (4.5-11.0) K/uL RBC 4.53 (3.30-5.50) M/uL Hgb 11.8 L D (12.0-15.0) g/dL Hct 36.4 (36.0-48.0) % MCV 80 (80-98) fL MCH 26 L (27-31) pg MCHC 32 (32-36) % Plt Count 266 (150-400) K/uL Neut % (Auto) 75 H (36-66) % Lymph % (Auto) 13 L (24-44) % [place] % (Auto) 12 H (2-6) % Eos % (Auto) 0 L (2-4) % Baso % (Auto) 0 (0-1) % Sodium 141 (140-148) mmol/L Potassium 3.4 L (3.6-5.2) mmol/L Chloride 107 (100-108) mmol/L Carbon Dioxide 22 (21-32) mmol/L Anion Gap 15.4 H (5.0-14.0) mmol/L BUN 23 H (7-18) mg/dL Creatinine 1.1 H (0.6-1.0) mg/dL Est Cr Clr Drug Dosing 43.28 Estimated GFR (MDRD) 49 L (>60) Glucose 92 (74-106) mg/dL Lactic Acid (0.4-2.0) mmol/L Calcium 8.3 L (8.5-10.1) mg/dL Total Bilirubin (0.2-1.0) mg/dL AST (15-37) U/L ALT (12-78) U/L Alkaline Phosphatase (46-116) U/L Total Protein (6.4-8.2) g/dL Albumin (3.4-5.0) g/dL Globulin (2.3-3.5) g/dL Albumin/Globulin Ratio (1.2-2.2) Amylase (25-115) U/L Lipase (73-393) U/L Urine Color Yellow Urine Appearance Slightly cloudy Urine pH 7.0 (4.5-8.0) Ur Specific [place] 1.010 (1.008-1.030) Urine Protein 30 H (NEGATIVE) mg/dL Urine Glucose (UA) Normal (NEGATIVE) mg/dL Urine Ketones 15 H (NEGATIVE) mg/dL Urine Occult Blood Negative (NEGATIVE) Urine Nitrite Negative (NEGATIVE) Urine Bilirubin Negative (NEGATIVE) Urine Urobilinogen Normal (NORMAL) mg/dL Ur Leukocyte Esterase Negative (NEGATIVE) Urine RBC 0-5 (0-5) Urine WBC 0-5 (0-5) Ur Epithelial Cells Not seen Amorphous Sediment Few Urine Bacteria Not seen Urine Mucus Not seen [place] Results Last 24 Hours: Microbiology 08/27/17 19:46 Stool Occult Blood ([place]) - Final Stool / Feces NEGATIVE OCCULT BLOOD Med Orders - Current: Current Medications Albuterol (Proventil Neb Soln) 2.5 mg NEB Q4H PRN PRN Reason: Shortness Of Breath/wheezing Albuterol/Ipratropium (Duoneb 3.0-0.5 Mg/3 Ml) 3 ml NEB QID PRN PRN Reason: Shortness Of Breath/wheezing Artificial Tears (Natural Balance Tears) [address] [facility] Clotrimazole (Lotrimin Af 1% Crm) [address] [facility] Last Admin: 08/28/17 08:44 Dose: 1 applic Fentanyl (Duragesic) [address] [facility] Sodium Chloride (Normal Saline) 1,000 mls @ 100 mls/hr IV ASDIRECTED [facility] Last Admin: 08/28/17 06:26 Dose: 100 mls/hr Ampicillin Sodium/Sulbactam (Sodium 1.5 gm/ Sodium Chloride) 50 mls @ 100 mls/ hr IV Q6H [facility] Last Admin: 08/28/17 08:46 Dose: 100 mls/hr Prochlorperazine Edisylate 5 (mg/ Sodium Chloride) 51 mls @ 150 mls/hr IV Q6H PRN PRN Reason: Nausea/Vomiting Potassium Chloride 20 meq/Lidocaine HCl 2 ml/ Sodium Chloride 112 mls @ 56 mls/ hr IV Q2H [facility] Stop: 08/28/17 13:59 Last Admin: 08/28/17 12:19 Dose: 56 mls/hr Lorazepam (Ativan) 0.5 mg IV Q4H PRN PRN Reason: Nausea/Vomiting Lorazepam (Ativan) 0.5 mg IVPUSH ONETIME ONE Stop: 04/04/18 09:01 Losartan Potassium (Cozaar) [address] [facility] Last Admin: 08/28/17 10:17 Dose: 100 mg Morphine Sulfate (Morphine) 2 mg IVPUSH Q2H PRN PRN Reason: Abdominal Pain Last Admin: 08/28/17 11:54 Dose: 2 mg Verify Fentanyl (Patch) [address] [facility] Last Admin: 08/28/17 08:30 Dose: Not Given Scopolamine Patch (Check) [address] [facility] Pantoprazole Sodium (Protonix Iv) [address] [facility] Propranolol HCl (Inderal) [address] [facility] Last Admin: 08/28/17 10:17 Dose: 120 mg Scopolamine (Transderm-Scop) 1.[address] [facility] Last Admin: 08/28/17 12:19 Dose: 1.5 mg Zolpidem Tartrate (Ambien) 5 mg PO BEDTIME PRN PRN Reason: Sleep Discontinued Medications Sodium Chloride (Normal Saline) 1,000 mls @ 500 mls/hr IV ASDIRECTED [facility] Last Admin: 08/27/17 17:57 Dose: 500 mls/hr Labetalol HCl (Normodyne) 10 mg IVPUSH ONETIME ONE; Protocol Stop: 08/27/17 19:19 Last Admin: 08/27/17 19:26 Dose: 10 mg Lorazepam (Ativan) 1 mg IV Q6H PRN PRN Reason: Nausea/Vomiting Pantoprazole Sodium (Protonix Iv) [address] [facility] Last Admin: 08/28/17 08:42 Dose: 40 mg Prochlorperazine Edisylate (Compazine) 5 mg IVPUSH ONETIME ONE Stop: 08/27/17 17:23 Last Admin: 08/27/17 17:57 Dose: 5 mg Propranolol HCl (Inderal La) 120 mg PO ONETIME ONE Stop: 08/27/17 19:21 Last Admin: 08/27/17 19:53 Dose: 120 mg Scopolamine (Transderm-Scop) mg TOP ASDIRECTED [facility] - Exam Quality Assessment: DVT Prophylaxis General: Alert, Oriented, Cooperative, Moderate Distress Lungs: Clear to Auscultation, Normal Respiratory Effort Cardiovascular: Regular Rate, Regular Rhythm, No Murmurs GI/Abdominal Exam: Soft, No Organomegaly, Tender. No: Distended, Guarding, Rigid, Rebound Extremities: Non-Tender, No Pedal Edema Skin: Warm, Dry, Intact - Problem List Review Problem List Initiated/Reviewed/Updated: Yes - My Orders Last 24 Hours: My Active Orders 08/28/17 10:00 Potassium Chloride 20 meq Lidocaine 1% [Xylocaine 1%] 2 ml Sodium Chloride 0.9 % [Normal Saline] 100 ml IV Q2H 08/28/17 11:00 Scopolamine [Transderm-Scop] 1.5 mg TRDERM Q72H 08/28/17 13:15 Pantoprazole [ProTONIX IV] 40 mg IV Q12H 08/28/17 13:16 LORazepam [Ativan] 0.5 mg IV Q4H PRN 08/28/17 13:17 Consult to Physician [CONS] Routine 08/28/17 13:19 Notify Provider Consults [RC] ASDIRECTED 08/29/17 05:00 BASIC METABOLIC PANEL,BMP [CHEM] Timed 08/29/17 08:00 Cholangiopancreatography [MR] Urgent 08/29/17 09:00 LORazepam [Ativan] 0.5 mg IVPUSH ONETIME ONE Non-Formulary Medication [NF Drug] 1 each TOP DAILY - Plan Plan:: ASSESSMENT / PLAN -72-year-old female that has a chronic G-tube after jaw and facial surgery, has been having abdominal pain and discomfort across the upper abdomen for several days, with 2 days of nausea and vomiting. She has an appointment with the surgery tomorrow to assess the G-tube, but developed persistent nausea and vomiting over the past 36 hours. She does not present a septic, is not hypotensive severe tachypneic and has no significant fever. She is uncomfortable. When asked if her bowels are moving she just says "I don't know" . Elevated blood pressure at 218/136 also noted, report no blood pressure medication given today at [facility]. reports headache, dizziness, nausea. denies chest pain or shortness of breath. Onset: Gradual, Over the past 4 days. Severity: Moderate Associated Symptoms: Reports: Loss of Appetite, Malaise, Nausea/Vomiting. Denies: Chest Pain, Cough, Diaphoresis Middle Abdomen ASSESSMENT AND PLAN RIGHT UPPER QUADRANT ABDOMINAL PAIN -IV Fluids for rehydration NS at 100 mL per hour -IV Antibiotic: Unasyn 1.5 gram IV every 6 hours -IV Protonix 40 mg q12hr -NPO -MRCP to further evaluate pain and ductal dilatation -Consult Dr. Bradley for surgical opinion and EGD Feeding Tube -Patient is able to eat and swallow pills per [facility]. -feeding tube care and cleaning -evaluation by Surgery Hypertension -restart medication -monitor closely. Maintenance issues -Nutrition: NPO diet -Goncalves catheter not indicated at this time -DVT: SCD -PPI: IV Protonix 40mg daily -consult OT for discharge planning -consult PT for strengthening. -consult Spiritual CODE STATUS: DNR/DNI Admission status: Admit to [address] [place] [address] Admission justification. This patient will be admitted for inpatient services and is medically appropriate meeting medical necessity for inpatient admission as outlined in my documentation. I reasonably expect the patient will require inpatient services that span. Time over 2 midnights. I reasonably expect this patient to be discharged or transferred within 96 hours after admission to the [facility]. Disposition: Assisted Living vs Residential Placement Primary care provider: Dr. Reddy Hospitalist: Dr. Kerns
[2017-08-28] MEDS ORDERED: Morphine PF 150 MG/30 ML PCA Syringe IV PRN (14:03)
[2017-08-28] MEDS ORDERED: Naloxone 0.4 MG/ML SDV IV PRN (14:03)
[2017-08-28] MEDS ORDERED: fentaNYL 100 MCG/HR Transdermal Patch TRDERM SCH (20:00)
[2017-08-28] MEDS: Hypromellose 0.4% Ophth Soln 15 ML Bottle EYEBOTH SCH (20:40)
[2017-08-29] MEDS: Ampicillin/Sulbactam Na 1.5 GM in Sodium Chloride 0.9% 50 ML IV SCH ×2 (03:14→09:16)
[2017-08-29] MEDS: Sodium Chloride 0.9% 1,000 ML IV SCH (03:17)
[2017-08-29] MEDS ORDERED: fentaNYL 100 MCG/2 ML SDV ONE (06:49)
[2017-08-29] MEDS ORDERED: Propofol 200 MG/20 ML SDV ONE (06:49)
[2017-08-29] MEDS ORDERED: Midazolam 1 MG/ML 2 ML SDV ONE (06:49)
[2017-08-29] MEDS: Pantoprazole 40 MG Vial IV SCH ×2 (09:03→21:13)
[2017-08-29] MEDS: Propranolol 40 MG Tab PO SCH ×3 (09:03→21:12)
[2017-08-29] MEDS: Clotrimazole 1% Crm 30 GM Tube TOP SCH ×2 (09:04→21:13)
[2017-08-29] MEDS: Losartan 50 MG Tab PO SCH (09:04)
[2017-08-29] MEDS: SCOPOLAMINE PATCH CHECK TOP SCH (09:11)
[2017-08-29] MEDS: VERIFY FENTANYL PATCH TOP SCH ×2 (09:11→21:13)
[2017-08-29] MEDS: LORazepam 2 MG/ML SDV IVPUSH ONE ×2 (09:12→10:39)
--- NOTE | 2017-08-29 09:40 | PN ---
DATE OF SERVICE: 08/29/2017 SUBJECTIVE: Kristen reports her pain on a pain scale of 1 to 10, a 9/10. Pain is in the right upper quadrant. She has been afebrile. Vital signs have been stable. REVIEW OF SYSTEMS: HEENT: Negative. NECK: Negative. CHEST: No chest pain, shortness of breath, or fast or irregular heartbeat. LUNGS: No cough. ABDOMEN: As above, pain in the right upper quadrant associated with nausea. No vomiting. Last bowel movement unknown, she cannot recall, and she has not had one since she has been in the hospital. EXTREMITIES: Has some joint pain. NEURO: Intact. PSYCHIATRIC: Negative. Remainder of review of systems negative for any other pertinent positives and negatives. OBJECTIVE: GENERAL: Kristen is a pleasant 72-year-old female. VITAL SIGNS: Height is 5 feet 6 inches, weight is 127 pounds. TPR 97.9, 61, 18. Blood pressure 142/67. HEENT: Negative. NECK: Supple. HEART: Regular rate and rhythm. LUNGS: Clear. ABDOMEN: Tender. EXTREMITIES: Without peripheral edema. ASSESSMENT: 1. Right upper quadrant abdominal pain. 2. Gastrostomy feeding tube. 3. Hypertension. PLAN: EGD scheduled today at 0715 hours; Berny Bradley M.D. Orders to be written pending results of EGD. Lorena Villarreal PA-C /[id number]
--- NOTE | 2017-08-29 11:52 | MR ---
Cholangiopancreatography HISTORY: Right upper quadrant abdominal pain, dilated ducts Multiplanar sequences and MRCP sequences were obtained. Source and 3-D MIP reconstructions were revie wed. COMPARISON: Noncontrasted CT scan of the abdomen and pelvis, 08/28/2017. FINDINGS: There is dilatation of extrahepatic biliary ducts. Common hepatic duct measures up to 15 mm in diameter. Common duct is dilated to the ampulla. No dilatation of the pancreatic duct is seen. Th ere is mild intrahepatic biliary duct dilatation. I see no definite evidence for retained biliary sto ne, mass, or stricture. Cystic duct remnant is not dilated. Gallbladder appears to be surgically abse nt. No focal parenchymal liver can be seen in the liver or spleen. Small renal cysts are noted bilate rally. PEG gastrostomy tube is noted. IMPRESSION: The gallbladder is surgically absent. Intrahepatic and extrahepatic biliary duct dilatati on as above. No retained biliary duct stone is identified. I cannot exclude small obstructing mass at the ampulla.
--- NOTE | 2017-08-29 13:05 | PCM.PN ---
- General Info Date of Service: 08/29/17 Subjective Update: This patient has been stable over the past 24 hours, although she continues to experience right upper quadrant and epigastric abdominal pain. Vital signs have been stable and she has remained afebrile. EGD was performed this morning by Dr. Bradley and showed evidence of diffuse gastritis. MRCP was also performed and shows ductal dilatation but no obvious obstruction. Functional Status: Reports: Urinating - Review of Systems General: Reports: Weakness. Denies: Fever, Chills Pulmonary: Reports: No Symptoms Cardiovascular: Reports: No Symptoms Gastrointestinal: Reports: Abdominal Pain. Denies: Constipation, Diarrhea, Difficulty Swallowing, Nausea, Vomiting - Patient Data Vitals - Most Recent: Last Vital Signs Temp 98.0 F 08/29/17 11:28 Pulse 58 L 08/29/17 11:28 Resp 16 08/29/17 11:28 BP 149/60 H 08/29/17 11:28 Pulse Ox 95 08/29/17 13:02 Weight - Most Recent: 127 lb 14.384 oz I&O - Last 24 Hours: Intake & Output 08/28/17 08/29/17 08/29/17 22:59 06:59 14:59 Intake Total 55 1322 50 Output Total 1600 225 350 Balance -1545 1097 -300 Lab Results Last 24 Hours: Laboratory Results - last 24 hr 08/29/17 Range/Units 05:30 Sodium 139 L (140-148) mmol/L Potassium 3.6 (3.6-5.2) mmol/L Chloride 108 (100-108) mmol/L Carbon Dioxide 18 L (21-32) mmol/L Anion Gap 16.6 H (5.0-14.0) mmol/L BUN 18 (7-18) mg/dL Creatinine 0.9 (0.6-1.0) mg/dL Est Cr Clr Drug Dosing 51.75 mL/min Estimated GFR (MDRD) > 60 (>60) Glucose 70 L (74-106) mg/dL Calcium 8.2 L (8.5-10.1) mg/dL Med Orders - Current: Current Medications Albuterol (Proventil Neb Soln) 2.5 mg NEB Q4H PRN PRN Reason: Shortness Of Breath/wheezing Albuterol/Ipratropium (Duoneb 3.0-0.5 Mg/3 Ml) 3 ml NEB QID PRN PRN Reason: Shortness Of Breath/wheezing Artificial Tears (Natural Balance Tears) 0 ml EYEBOTH BEDTIME [facility] Last Admin: 08/28/17 20:40 Dose: Not Given Clotrimazole (Lotrimin Af 1% Crm) 0 gm TOP BID [facility] Last Admin: 08/29/17 09:04 Dose: 1 applic Fentanyl (Duragesic) 100 mcg TRDERM Q72H [facility] Last Admin: 08/28/17 20:37 Dose: 100 mcg Prochlorperazine Edisylate 5 (mg/ Sodium Chloride) 51 mls @ 150 mls/hr IV Q6H PRN PRN Reason: Nausea/Vomiting Lorazepam (Ativan) 0.5 mg IV Q4H PRN PRN Reason: Nausea/Vomiting Losartan Potassium (Cozaar) 100 mg PO DAILY [facility] Last Admin: 08/29/17 09:04 Dose: 100 mg Naloxone HCl (Narcan) 0.1 mg IV ASDIRECTED PRN PRN Reason: RESP DISTRESS Verify Fentanyl (Patch) 0 each TOP BID [facility] Last Admin: 08/29/17 09:11 Dose: Not Given Scopolamine Patch (Check) 1 each TOP DAILY [facility] Last Admin: 08/29/17 09:11 Dose: Not Given Oxycodone HCl (Oxycodone) 10 mg PO Q4H PRN PRN Reason: Pain Pantoprazole Sodium (Protonix Iv) 40 mg IV Q12H [facility] Last Admin: 08/29/17 09:03 Dose: 40 mg Propranolol HCl (Inderal) 120 mg PO TID [facility] Last Admin: 08/29/17 09:03 Dose: 120 mg Scopolamine (Transderm-Scop) 1.5 mg TRDERM Q72H [facility] Last Admin: 08/28/17 12:19 Dose: 1.5 mg Sucralfate (Carafate) 1 gm PO QID [facility] Zolpidem Tartrate (Ambien) 5 mg PO BEDTIME PRN PRN Reason: Sleep Discontinued Medications Fentanyl (Sublimaze) Confirm Administered Dose 100 mcg .ROUTE .STK-MED ONE Stop: 08/29/17 06:50 Sodium Chloride (Normal Saline) 1,000 mls @ 500 mls/hr IV ASDIRECTED [facility] Last Admin: 08/27/17 17:57 Dose: 500 mls/hr Sodium Chloride (Normal Saline) 1,000 mls @ 100 mls/hr IV ASDIRECTED [facility] Last Admin: 08/29/17 03:17 Dose: 100 mls/hr Ampicillin Sodium/Sulbactam (Sodium 1.5 gm/ Sodium Chloride) 50 mls @ 100 mls/ hr IV Q6H [facility] Last Admin: 08/29/17 09:16 Dose: 100 mls/hr Potassium Chloride 20 meq/Lidocaine HCl 2 ml/ Sodium Chloride 112 mls @ 56 mls/ hr IV Q2H [facility] Stop: 08/28/17 13:59 Last Admin: 08/28/17 12:19 Dose: 56 mls/hr Labetalol HCl (Normodyne) 10 mg IVPUSH ONETIME ONE; Protocol Stop: 08/27/17 19:19 Last Admin: 08/27/17 19:26 Dose: 10 mg Lorazepam (Ativan) 1 mg IV Q6H PRN PRN Reason: Nausea/Vomiting Lorazepam (Ativan) 0.5 mg IVPUSH ONETIME ONE Stop: 08/29/17 09:01 Last Admin: 08/29/17 10:39 Dose: 0.5 mg Midazolam HCl (Versed 1 Mg/Ml) Confirm Administered Dose 2 mg .ROUTE .STK-MED ONE Stop: 08/29/17 06:50 Morphine Sulfate (Morphine) 2 mg IVPUSH Q2H PRN PRN Reason: Abdominal Pain Last Admin: 08/28/17 13:56 Dose: 2 mg Morphine Sulfate (Morphine [employer] 150 Mg In 30 Ml) 0 mg IV ASDIRECTED PRN; Protocol PRN Reason: PAIN Last Admin: 08/28/17 14:40 Dose: 150 mg Pantoprazole Sodium (Protonix Iv) 40 mg IV DAILY [facility] Last Admin: 08/28/17 08:42 Dose: 40 mg Prochlorperazine Edisylate (Compazine) 5 mg IVPUSH ONETIME ONE Stop: 08/27/17 17:23 Last Admin: 08/27/17 17:57 Dose: 5 mg Propofol (Diprivan 20 Ml) Confirm Administered Dose 200 mg .ROUTE .STK-MED ONE Stop: 08/29/17 06:50 Propranolol HCl (Inderal La) 120 mg PO ONETIME ONE Stop: 08/27/17 19:21 Last Admin: 08/27/17 19:53 Dose: 120 mg Scopolamine (Transderm-Scop) mg TOP ASDIRECTED [facility] - Exam Quality Assessment: DVT Prophylaxis General: Alert, Oriented, Cooperative, Mild Distress Lungs: Clear to Auscultation, Normal Respiratory Effort Cardiovascular: Regular Rate, Regular Rhythm, No Murmurs GI/Abdominal Exam: Soft, No Organomegaly, Tender. No: Distended, Guarding, Rigid, Rebound Extremities: Non-Tender, No Pedal Edema Skin: Warm, Dry - Problem List Review Problem List Initiated/Reviewed/Updated: Yes - My Orders Last 24 Hours: My Active Orders 08/28/17 13:16 LORazepam [Ativan] 0.5 mg IV Q4H PRN 08/28/17 13:17 Consult to Physician [CONS] Routine 08/28/17 13:19 Notify Provider Consults [RC] ASDIRECTED 08/28/17 21:00 Pantoprazole [ProTONIX IV] 40 mg IV Q12H 08/29/17 09:00 Non-Formulary Medication [NF Drug] 1 each TOP DAILY 08/29/17 12:24 Convert IV to Saline Lock [OM.PC] Routine 08/29/17 12:25 oxyCODONE 10 mg PO Q4H PRN 08/29/17 16:00 Sucralfate [Carafate] 1 gm PO QID 08/29/17 Breakfast NPO Now [Nothing per Oral Now Diet] [DIET] - Plan Plan:: ASSESSMENT / PLAN ASSESSMENT AND PLAN RIGHT UPPER QUADRANT ABDOMINAL PAIN-EGD performed by Dr. Bradley shows evidence of diffuse gastritis, MRCP showed no obvious obstructing process -Saline lock IV -Discontinue antibiotic therapy, no evidence of underlying infection -Carafate slurry 1 g by mouth 4 times a day -IV Protonix 40 mg q12hr -Regular diet -Surgical follow-up per Dr. Bradley Feeding Tube -Patient is able to eat and swallow pills per [facility]isted [facility]. -feeding tube care and cleaning Hypertension -restart medication -monitor closely. Maintenance issues -NutritionRegular diet -Goncalves catheter not indicated at this time -DVT: SCD -PPI: IV Protonix 40mg daily -consult OT for discharge planning -consult PT for strengthening. -consult Spiritual CODE STATUS: DNR/DNI Admission status: Admit to [address] [place] [address]. This patient will be admitted for inpatient services and is medically appropriate meeting medical necessity for inpatient admission as outlined in my documentation. I reasonably expect the patient will require inpatient services that span. Time over 2 midnights. I reasonably expect this patient to be discharged or transferred within 96 hours after admission to the [facility]. Disposition: Assisted Living vs Retirement Placement Primary care provider: Dr. Reddy Hospitalist: Dr. Kerns
[2017-08-29] MEDS: oxyCODONE 5 MG Tab PO PRN ×3 (13:06→21:10)
[2017-08-29] MEDS: Sucralfate Suspension 1 GM/10 ML Cup PO SCH ×2 (17:01→21:13)
--- NOTE | 2017-08-29 17:07 | PROC ---
DATE OF PROCEDURE: 08/29/2017 PREOPERATIVE DIAGNOSIS: Right upper quadrant pain. POSTOPERATIVE DIAGNOSIS: Right upper quadrant pain associated with intense gastritis involving gastric body and antrum with a significant amount of retained bile. PROCEDURE PERFORMED: Upper gastrointestinal endoscopy with biopsies of antrum for BRONWYN test. ANESTHESIA: IV sedation. INDICATION FOR PROCEDURE: This is a 72-year-old presenting with some right upper quadrant pain. She is status post previous cholecystectomy, and CT scan was otherwise fairly unremarkable. The plan is to proceed with upper GI endoscopy with biopsies as indicated. Potential risks including bleeding and perforation were discussed, and the patient wishes to proceed. PROCEDURE IN DETAIL: The patient was taken to the operating room and placed in the left lateral decubitus position. IV sedation was administered after which the upper GI endoscope was passed orally through the length of the esophagus and the stomach with retroflexion view of the fundus and thereafter through the pyloric channel into the proximal duodenum. Findings included a normal hypopharynx and larynx. These areas did not appear to be significantly distorted secondary to her head and neck cancer procedures. The esophagus likewise was normal for its entire length. There was no significant hiatal hernia or significant inflammation at the esophagogastric junction. Within the stomach, there was a moderate amount of retained bile. The gastrostomy tube was in place. Proximal stomach had relatively little in the way of inflammation, but as one got into the middle portion of the gastric body and then more intensely in the antrum, there was quite intense gastritis. No erosions were present or ulcers. The pyloric channel and duodenum to the junction of the 3rd and 4th portions were otherwise unremarkable. At this point, biopsies were obtained from the antrum and sent for BRONWYN test for H pylori. Minimal bleeding of the biopsy sites was seen, and the procedure was then concluded. The patient will started on the proton pump inhibitors. With the amount of bile present in this case, if PPIs are not adequately effective, or when desired to get off the PPIs, one might try topical agents such as liquid Carafate which could be given through the gastrostomy tube. Berny Bradley MD /[id number]
--- NOTE | 2017-08-29 17:19 | CONS ---
DATE OF SERVICE: 08/28/2017 REFERRING PHYSICIAN: CONSULTING PHYSICIAN: Berny Bardley MD HISTORY: This is a 72-year-old with head-neck cancer, who has been receiving tube feedings and now presented with some right upper quadrant pain. Workup thus far includes a CAT scan, which was unremarkable. She does have a gastrostomy tube in place, and there was some question about some redness around that in terms of any infection, but otherwise her workup thus far has been negative. Liver function tests do not show any significant abnormalities. Lipase and amylase have been normal. PHYSICAL EXAMINATION: On examination, this patient has some mild discomfort in the right upper quadrant. The G- tube site is clean with just small amount of redness and exudate around it, which we typically see. ASSESSMENT AND PLAN: At this point, after discussion with Dr. Kerns, the plan will be to proceed with an upper endoscopy in the morning to evaluate for possibility such as gastritis or peptic ulcer disease. The plan will be to proceed with upper endoscopy tomorrow morning. She will be n.p.o. 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 Berny Bradley MD /[id number]
[2017-08-29] MEDS: Zolpidem 5 MG Tab PO PRN (21:11)
[2017-08-29] MEDS: Hypromellose 0.4% Ophth Soln 15 ML Bottle EYEBOTH SCH (21:17)
[2017-08-30] MEDS: oxyCODONE 5 MG Tab PO PRN ×5 (04:28→21:23)
[2017-08-30] MEDS: Sucralfate Suspension 1 GM/10 ML Cup PO SCH ×4 (06:07→21:25)
[2017-08-30] MEDS: Propranolol 40 MG Tab PO SCH ×3 (08:37→21:24)
[2017-08-30] MEDS: Losartan 50 MG Tab PO SCH (08:38)
[2017-08-30] MEDS: Clotrimazole 1% Crm 30 GM Tube TOP SCH ×2 (08:39→21:24)
[2017-08-30] MEDS: SCOPOLAMINE PATCH CHECK TOP SCH (08:39)
[2017-08-30] MEDS: VERIFY FENTANYL PATCH TOP SCH ×2 (08:39→21:22)
[2017-08-30] MEDS: Pantoprazole 40 MG Vial IV SCH ×2 (08:41→10:40)
[2017-08-30] MEDS: Pantoprazole 40 MG Tab.CR PO SCH (11:55)
--- NOTE | 2017-08-30 12:08 | PN ---
DATE OF SERVICE: 08/30/2017 SUBJECTIVE: Kristen had an EGD yesterday which showed gastritis. She right now is reporting pain on a pain scale of 1-10 on her abdomen as a 9/10. She is waiting for pain medication. Vital signs have been stable. Oral intake 240. She does have a PEG tube in. She had one bolus at 360. Urine output 1150. REVIEW OF SYSTEMS: CONSTITUTIONAL: Denies any fever, chills, night sweats, or fatigue. HEENT: Negative. NECK: Some stiffness in pain. CHEST: No chest pain, shortness of breath, fast or irregular heartbeat. LUNGS: No cough. ABDOMEN: Reports pain, generalized. No BM is recorded on I and O. GENITOURINARY: Denies any UTI signs and symptoms. EXTREMITIES: Negative. SKIN: Negative. PSYCHIATRIC: Negative. Remainder of review of systems negative for any pertinent positives and negatives. OBJECTIVE: GENERAL: Kristen is a 72-year-old female. VITAL SIGNS: TPR is 98, 59, 158/69, respirations are 16. HEENT: Negative. NECK: Supple. HEART: Regular rate and rhythm. LUNGS: Clear. ABDOMEN: Generalized tenderness to palpation. Gastrostomy tube in place. EXTREMITIES: Without peripheral edema. ASSESSMENT: 1. EGD, 08/29/2017. 2. Right upper quadrant pain. 3. Gastrostomy tube feeding. 4. Hypertension. PLAN: Continue same treatment. We will evaluate p.r.n. or in the a.m. Lorena Villarreal PA-C /[id number]
--- NOTE | 2017-08-30 14:03 | PCM.PN ---
- General Info Date of Service: 08/30/17 Subjective Update: This patient has improved since yesterday with less abdominal pain, currently tolerating a regular diet. She's had no nausea or vomiting and vital signs have remained stable. Functional Status: Reports: Pain Controlled, Tolerating Diet, Urinating - Review of Systems General: Denies: Fever, Weakness, Chills Pulmonary: Reports: No Symptoms Cardiovascular: Reports: No Symptoms Gastrointestinal: Reports: Abdominal Pain. Denies: Constipation, Diarrhea, Difficulty Swallowing, Nausea, Vomiting - Patient Data Vitals - Most Recent: Last Vital Signs Temp 97.8 F 08/30/17 11:44 Pulse 63 08/30/17 11:44 Resp 16 08/30/17 11:44 BP 152/59 H 08/30/17 11:44 Pulse Ox 99 08/30/17 11:44 Weight - Most Recent: 127 lb 14.384 oz I&O - Last 24 Hours: Intake & Output 08/29/17 08/30/17 08/30/17 22:59 06:59 14:59 Intake Total 480 830 Output Total 321 066 7073 Balance -20 -300 -370 [place] Results Last 24 Hours: Microbiology 08/29/17 07:21 CLOtest - Final Stomach NEGATIVE CLOTEST Med Orders - Current: Current Medications Albuterol (Proventil Neb Soln) 2.5 mg NEB Q4H PRN PRN Reason: Shortness Of Breath/wheezing Albuterol/Ipratropium (Duoneb 3.0-0.5 Mg/3 Ml) 3 ml NEB QID PRN PRN Reason: Shortness Of Breath/wheezing Artificial Tears (Natural Balance Tears) 0 ml EYEBOTH BEDTIME [facility] Last Admin: 08/29/17 21:17 Dose: Not Given Clotrimazole (Lotrimin Af 1% Crm) 0 gm TOP BID [facility] Last Admin: 08/30/17 08:39 Dose: 1 applic Fentanyl (Duragesic) 100 mcg TRDERM Q72H [facility] Last Admin: 08/28/17 20:37 Dose: 100 mcg Prochlorperazine Edisylate 5 (mg/ Sodium Chloride) 51 mls @ 150 mls/hr IV Q6H PRN PRN Reason: Nausea/Vomiting Lorazepam (Ativan) 0.5 mg IV Q4H PRN PRN Reason: Nausea/Vomiting Losartan Potassium (Cozaar) 100 mg PO DAILY [facility] Last Admin: 08/30/17 08:38 Dose: 100 mg Verify Fentanyl (Patch) 0 each TOP BID [facility] Last Admin: 08/30/17 08:39 Dose: Not Given Scopolamine Patch (Check) 1 each TOP DAILY [facility] Last Admin: 08/30/17 08:39 Dose: Not Given Oxycodone HCl (Oxycodone) 10 mg PO Q4H PRN PRN Reason: Pain Last Admin: 08/30/17 12:41 Dose: 10 mg Pantoprazole Sodium (Protonix) 40 mg PO DAILY@0730 [facility] Last Admin: 08/30/17 11:55 Dose: 40 mg Propranolol HCl (Inderal) 120 mg PO TID [facility] Last Admin: 08/30/17 08:37 Dose: 120 mg Scopolamine (Transderm-Scop) 1.5 mg TRDERM Q72H [facility] Last Admin: 08/28/17 12:19 Dose: 1.5 mg Sucralfate (Carafate) 1 gm PO QID [facility] Last Admin: 08/30/17 10:39 Dose: 1 gm Zolpidem Tartrate (Ambien) 5 mg PO BEDTIME PRN PRN Reason: Sleep Last Admin: 08/29/17 21:11 Dose: 5 mg Discontinued Medications Fentanyl (Sublimaze) Confirm Administered Dose 100 mcg .ROUTE .STK-MED ONE Stop: 08/29/17 06:50 Sodium Chloride (Normal Saline) 1,000 mls @ 500 mls/hr IV ASDIRECTED [facility] Last Admin: 08/27/17 17:57 Dose: 500 mls/hr Sodium Chloride (Normal Saline) 1,000 mls @ 100 mls/hr IV ASDIRECTED [facility] Last Admin: 08/29/17 03:17 Dose: 100 mls/hr Ampicillin Sodium/Sulbactam (Sodium 1.5 gm/ Sodium Chloride) 50 mls @ 100 mls/ hr IV Q6H [facility] Last Admin: 08/29/17 09:16 Dose: 100 mls/hr Potassium Chloride 20 meq/Lidocaine HCl 2 ml/ Sodium Chloride 112 mls @ 56 mls/ hr IV Q2H [facility] Stop: 08/28/17 13:59 Last Admin: 08/28/17 12:19 Dose: 56 mls/hr Labetalol HCl (Normodyne) 10 mg IVPUSH ONETIME ONE; Protocol Stop: 08/27/17 19:19 Last Admin: 08/27/17 19:26 Dose: 10 mg Lorazepam (Ativan) 1 mg IV Q6H PRN PRN Reason: Nausea/Vomiting Lorazepam (Ativan) 0.5 mg IVPUSH ONETIME ONE Stop: 08/29/17 09:01 Last Admin: 08/29/17 10:39 Dose: 0.5 mg Midazolam HCl (Versed 1 Mg/Ml) Confirm Administered Dose 2 mg .ROUTE .STK-MED ONE Stop: 08/29/17 06:50 Morphine Sulfate (Morphine) 2 mg IVPUSH Q2H PRN PRN Reason: Abdominal Pain Last Admin: 08/28/17 13:56 Dose: 2 mg Morphine Sulfate (Morphine [employer] 150 Mg In 30 Ml) 0 mg IV ASDIRECTED PRN; Protocol PRN Reason: PAIN Last Admin: 08/28/17 14:40 Dose: 150 mg Naloxone HCl (Narcan) 0.1 mg IV ASDIRECTED PRN PRN Reason: RESP DISTRESS Pantoprazole Sodium (Protonix Iv) 40 mg IV DAILY [facility] Last Admin: 08/28/17 08:42 Dose: 40 mg Pantoprazole Sodium (Protonix Iv) 40 mg IV Q12H [facility] Last Admin: 08/30/17 10:40 Dose: Not Given Prochlorperazine Edisylate (Compazine) 5 mg IVPUSH ONETIME ONE Stop: 08/27/17 17:23 Last Admin: 08/27/17 17:57 Dose: 5 mg Propofol (Diprivan 20 Ml) Confirm Administered Dose 200 mg .ROUTE .STK-MED ONE Stop: 08/29/17 06:50 Propranolol HCl (Inderal La) 120 mg PO ONETIME ONE Stop: 08/27/17 19:21 Last Admin: 08/27/17 19:53 Dose: 120 mg Scopolamine (Transderm-Scop) mg TOP ASDIRECTED [facility]ADI[facility] - Exam Quality Assessment: DVT Prophylaxis General: Alert, Oriented, Cooperative, Mild Distress Lungs: Clear to Auscultation, Normal Respiratory Effort Cardiovascular: Regular Rate, Regular Rhythm, No Murmurs GI/Abdominal Exam: Soft, No Organomegaly, Tender. No: Distended, Guarding, Rigid, Rebound Extremities: Non-Tender, No Pedal Edema Skin: Warm, Dry, Intact - Problem List Review Problem List Initiated/Reviewed/Updated: Yes - My Orders Last 24 Hours: My Active Orders 08/29/17 16:00 Sucralfate [Carafate] 1 gm PO QID 08/29/17 Dinner Tube Feeding Adult Diet [DIET] 08/30/17 10:45 Pantoprazole [ProTONIX] 40 mg PO DAILY@0730 08/30/17 Lunch Regular Diet [DIET] - Plan Plan:: ASSESSMENT AND PLAN DIFFUSE GASTRITIS-causing relatively severe abdominal pain associated with nausea and vomiting. Since yesterday pain has further improved and she is no longer experiencing nausea or vomiting. -Saline lock IV -Discontinue antibiotic therapy, no evidence of underlying infection -Carafate slurry 1 g by mouth 4 times a day -Protonix 40 mg by mouth q12hr -Regular diet -Surgical follow-up per Dr. Bradley Feeding Tube -Resume usual tube feedings -feeding tube care and cleaning Hypertension -restart medication Maintenance issues -NutritionRegular diet -Goncalves catheter not indicated at this time -DVT: SCD -PPI: IV Protonix 40mg daily -consult OT for discharge planning -consult PT for strengthening. -consult Spiritual CODE STATUS: DNR/DNI Admission status: Admit to [address] [place] [address] Admission justification. This patient will be admitted for inpatient services and is medically appropriate meeting medical necessity for inpatient admission as outlined in my documentation. I reasonably expect the patient will require inpatient services that span. Time over 2 midnights. I reasonably expect this patient to be discharged or transferred within 96 hours after admission to the critical access hospital. Disposition: Assisted Living vs [facility] Placement Primary care provider: Dr. Reddy Hospitalist: Dr. Kerns
[2017-08-30] MEDS: Zolpidem 5 MG Tab PO PRN (21:23)
[2017-08-30] MEDS: Hypromellose 0.4% Ophth Soln 15 ML Bottle EYEBOTH SCH (21:24)
[2017-08-31] MEDS: Sucralfate Suspension 1 GM/10 ML Cup PO SCH ×2 (05:49→10:34)
[2017-08-31] MEDS: oxyCODONE 5 MG Tab PO PRN ×3 (05:49→14:16)
[2017-08-31] MEDS: Pantoprazole 40 MG Tab.CR PO SCH (08:48)
[2017-08-31] MEDS: Propranolol 40 MG Tab PO SCH ×2 (09:07→13:59)
[2017-08-31] MEDS: Acetaminophen 325 MG Tab PO PRN ×2 (09:07→14:17)
[2017-08-31] MEDS: SCOPOLAMINE PATCH CHECK TOP SCH (09:08)
[2017-08-31] MEDS: Losartan 50 MG Tab PO SCH (09:08)
[2017-08-31] MEDS: Clotrimazole 1% Crm 30 GM Tube TOP SCH (09:08)
[2017-08-31] MEDS: VERIFY FENTANYL PATCH TOP SCH (09:09)
--- NOTE | 2017-08-31 13:00 | PN ---
DATE OF SERVICE: 08/31/2017 SUBJECTIVE: Kristen states her abdominal pain is a little bit better. She has been taking oral pain pills. She gets gastrostomy tube feedings 3 times a day. She states she will probably be going home today. REVIEW OF SYSTEMS: VITAL SIGNS: Have been stable. HEENT: Negative. NECK: Remains to have some stiffness which is chronic. CHEST: No chest pain, shortness of breath, fast or irregular heart beat. LUNGS: No cough. ABDOMEN: Reports generalized abdominal pain. : Negative for UTI signs and symptoms. EXTREMITIES: Negative. SKIN: Negative. PSYCHIATRIC: Negative. Remainder of review of systems negative for any pertinent positives and negatives. PHYSICAL EXAMINATION: GENERAL: Kristen is a 72-year-old female. She is alert and orientated, quiet. VITAL SIGNS: TPR is 98.4, 64, 20, blood pressure 172/76. Oral intake is 420. Gastrostomy tube feeding is 807, water through the gastrostomy tube is 300. Urine output is 1950. HEENT: Negative. NECK: Supple. HEART: Regular rate and rhythm. LUNGS: Clear. ABDOMEN: Soft, minimally tender. Gastrostomy tube in place. EXTREMITIES: Without peripheral edema. ASSESSMENT: EGD 08/29/2017 showing; 1. Gastritis. 2. Right upper quadrant abdominal pain. 3. Gastrostomy tube feedings. 4. Hypertension. PLAN: Surgery team to sign off and will follow up yaron Villarreal PA-C /[id number]
--- NOTE | 2017-08-31 13:08 | PCM.DCSUM1 ---
Discharge Summary - Hospital Course Brief History: This patient is a 72-year-old woman who was admitted through the emergency department with upper abdominal pain associated with nausea and vomiting. 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 SNOMED Code(s): 810735608 ICD Code: Z85.819 - PRSNL HX OF MALIG NEOPLM OF UNSP SITE LIP,ORAL CAV,& PHARYNX Status: Chronic Current Visit: No (4) CKD (chronic kidney disease) SNOMED Code(s): 390338821 ICD Code: N18.9 - CHRONIC KIDNEY DISEASE, UNSPECIFIED Status: Chronic Current Visit: No (5) Gastrostomy tube in place SNOMED Code(s): 465751262, 462379611 ICD Code: Z93.1 - GASTROSTOMY STATUS Status: Chronic Current Visit: No - Patient Summary/Data Consults: Consultations 08/27/17 21:15 Consult to Mobile Home Servicer [CONS] Routine Comment: Physician Instructions: Quantity: Consult to Spiritual Care [CONS] Routine OT Evaluation and Treatment [CONS] Routine Please Evaluate and Treat. OT Reason for Consult: Discharge Planning This query below is only for informational purposes and is not editable. PT Evaluation and Treatment [CONS] Routine Please Evaluate and Treat. PT Reason for Consult: Strengthening This query below is only for informational purposes and is not editable. 08/28/17 13:17 Consult to Physician [CONS] Routine Consulting Provider: Berny Bradley Courtesy Call Completed to Consulting Physician: Yes Reason for Consult: Right upper quadrant abdominal pain, EGD in a.m. Hospital Course: 72-year-old female that has a chronic G-tube after jaw and facial surgery, has been having abdominal pain and discomfort across the upper abdomen for several days, with 2 days of nausea and vomiting. She had an appointment with surgery for the next day to assess the G-tube, but developed persistent nausea and vomiting over the past 36 hours prior to admission. She does not present a septic, is not hypotensive severe tachypneic and has no significant fever. She is uncomfortable. When asked if her bowels are moving she just says "I don't know". Elevated blood pressure at 218/136 also noted, report no blood pressure medication given today at [facility]. reports headache, dizziness, nausea denies chest pain or shortness of breath. She was admitted to the hospital and given IV fluids for hydration as well as pain medication and anti-medic therapy.CT scan of the abdomen and pelvis was obtained in the emergency department and did show absence of the gallbladder, as well as dilatation of the intra-and extrahepatic ducts. Lipase level was normal showing no evidence of pancreatitis. She was started on IV proton pump inhibitor therapy at the time of admission. Surgical consult was obtained with Dr. Bradley and an EGD was performed which did show evidence of diffuse gastritis. MRCP was also obtained to further evaluate hepatic ductal dilatation and showed dilated ducts but no obvious cause or source of obstruction. Symptoms of abdominal pain and nausea vomiting gradually resolved over the next few days of hospitalization. In addition to the IV Protonix she was treated with oral Carafate. By the time of discharge she was not having significant abdominal pain in the nausea vomiting had totally resolved. She was tolerating her usual diet and had resumed her tube feedings. She will be discharged home on oral Protonix 40 mg twice daily for 10 days then once daily thereafter in addition to Carafate 1 g by mouth 4 times daily. Activity will be as tolerated and she will resume usual diet as above. Follow-up appointment will be scheduled with her primary care provider within one week. - Patient Instructions Diet: Usual Diet as Tolerated Diet, Other: continue tube feedings as previously ordered Activity: As Tolerated Other/Special Instructions: please schedule follow-up appointment with Dr. Aguilar within one week. - Discharge Plan Prescriptions/Med Rec: Pantoprazole Sodium [Protonix] 40 mg PO BID #30 tablet. Sucralfate [Carafate] 1 gm PO QID #1200 ml Home Medications: Home Meds Losartan [Cozaar] 100 mg PO DAILY 06/26/16 [History] fentaNYL [Fentanyl] 100 mcg TOP Q72H 06/26/16 [History] Aspirin [Ecotrin] 81 mg PO DAILY 06/30/16 [History] Cyanocobalamin (Vitamin B12) [Vitamin B12] 1,000 mcg IM ASDIRECTED 06/30/16 [ History] Hypromellose [Genteal Mild] 1 drop EYEBOTH BEDTIME 06/30/16 [History] Loperamide [Imodium] 2 mg PO DAILY 06/30/16 [History] Pravastatin Sodium [Pravachol] 20 mg PO BEDTIME 06/30/16 [History] Prochlorperazine Maleate [Compazine] 10 mg PO Q6H PRN 06/30/16 [History] Scopolamine [Transderm-Scop] 1 patch TOP ASDIRECTED PRN 06/30/16 [History] Acetaminophen [Tylenol] 650 mg PO Q4H PRN #0 tablet 07/07/16 [Rx] Acetaminophen/HYDROcodone [[place] 325-10 MG] 1 tab PO Q4H PRN #30 tablet [Rx] Sucralfate [Carafate] 0.5 gm PO QID #100 ml 07/07/16 [Rx] Rvklc-C-Cqjcpvriijdno [Beano] 2 tab PO QID 09/22/16 [History] Gabapentin [Neurontin] 300 mg PO TID 09/22/16 [History] Omeprazole Magnesium [Prilosec Otc] 40 mg PO DAILY 09/22/16 [History] Clotrimazole [Clotrimazole 1%] 1 applic TOP BID 09/26/16 [History] Potassium Chloride [Potassium Chloride Solution] 20 meq GTUBE DAILY 09/26/16 [ History] Propranolol HCl [Inderal Xl] 120 mg PO TID 08/27/17 [History] Pantoprazole Sodium [Protonix] 40 mg PO BID #30 tablet. 08/31/17 [Rx] Sucralfate [Carafate] 1 gm PO QID #1200 ml 08/31/17 [Rx] Referrals: Bo Aguilar MD [Physician] - - Patient Data Vitals - Most Recent: Last Vital Signs Temp 98.0 F 08/31/17 11:00 Pulse 64 08/31/17 11:00 Resp 14 08/31/17 11:00 BP 178/67 H 08/31/17 11:00 Pulse Ox 97 08/31/17 11:00 Weight - Most Recent: 127 lb 14.384 oz I&O - Last 24 hours: Intake & Output 08/30/17 08/31/17 08/31/17 22:59 06:59 14:59 Intake Total 717 285 Output Total 150 575 Balance 567 -290 Med Orders - Current: Current Medications Acetaminophen (Tylenol) 650 mg PO Q4H PRN PRN Reason: Pain Last Admin: 08/31/17 09:07 Dose: 650 mg Albuterol (Proventil Neb Soln) 2.5 mg NEB Q4H PRN PRN Reason: Shortness Of Breath/wheezing Albuterol/Ipratropium (Duoneb 3.0-0.5 Mg/3 Ml) 3 ml NEB QID PRN PRN Reason: Shortness Of Breath/wheezing Artificial Tears (Natural Balance Tears) 0 ml EYEBOTH BEDTIME [facility] Last Admin: 08/30/17 21:24 Dose: Not Given Clotrimazole (Lotrimin Af 1% Crm) 0 gm TOP BID [facility] Last Admin: 08/31/17 09:08 Dose: 1 applic Fentanyl (Duragesic) 100 mcg TRDERM Q72H [facility] Last Admin: 08/28/17 20:37 Dose: 100 mcg Prochlorperazine Edisylate 5 (mg/ Sodium Chloride) 51 mls @ 150 mls/hr IV Q6H PRN PRN Reason: Nausea/Vomiting Lorazepam (Ativan) 0.5 mg IV Q4H PRN PRN Reason: Nausea/Vomiting Losartan Potassium (Cozaar) 100 mg PO DAILY [facility] Last Admin: 08/31/17 09:08 Dose: 100 mg Verify Fentanyl (Patch) 0 each TOP BID [facility] Last Admin: 08/31/17 09:09 Dose: Not Given Scopolamine Patch (Check) 1 each TOP DAILY [facility] Last Admin: 08/31/17 09:08 Dose: Not Given Oxycodone HCl (Oxycodone) 10 mg PO Q4H PRN PRN Reason: Pain Last Admin: 08/31/17 10:33 Dose: 10 mg Pantoprazole Sodium (Protonix) 40 mg PO DAILY@0730 [facility] Last Admin: 08/31/17 08:48 Dose: 40 mg Propranolol HCl (Inderal) 120 mg PO TID [facility] Last Admin: 08/31/17 09:07 Dose: 120 mg Scopolamine (Transderm-Scop) 1.5 mg TRDERM Q72H [facility] Last Admin: 08/28/17 12:19 Dose: 1.5 mg Sucralfate (Carafate) 1 gm PO QID [facility] Last Admin: 08/31/17 10:34 Dose: 1 gm Zolpidem Tartrate (Ambien) 5 mg PO BEDTIME PRN PRN Reason: Sleep Last Admin: 08/30/17 21:23 Dose: 5 mg Discontinued Medications Fentanyl (Sublimaze) Confirm Administered Dose 100 mcg .ROUTE .STK-MED ONE Stop: 08/29/17 06:50 Sodium Chloride (Normal Saline) 1,000 mls @ 500 mls/hr IV ASDIRECTED [facility] Last Admin: 08/27/17 17:57 Dose: 500 mls/hr Sodium Chloride (Normal Saline) 1,000 mls @ 100 mls/hr IV ASDIRECTED [facility] Last Admin: 08/29/17 03:17 Dose: 100 mls/hr Ampicillin Sodium/Sulbactam (Sodium 1.5 gm/ Sodium Chloride) 50 mls @ 100 mls/ hr IV Q6H [facility] Last Admin: 08/29/17 09:16 Dose: 100 mls/hr Potassium Chloride 20 meq/Lidocaine HCl 2 ml/ Sodium Chloride 112 mls @ 56 mls/ hr IV Q2H [facility] Stop: 08/28/17 13:59 Last Admin: 08/28/17 12:19 Dose: 56 mls/hr Labetalol HCl (Normodyne) 10 mg IVPUSH ONETIME ONE; Protocol Stop: 08/27/17 19:19 Last Admin: 08/27/17 19:26 Dose: 10 mg Lorazepam (Ativan) 1 mg IV Q6H PRN PRN Reason: Nausea/Vomiting Lorazepam (Ativan) 0.5 mg IVPUSH ONETIME ONE Stop: 08/29/17 09:01 Last Admin: 08/29/17 10:39 Dose: 0.5 mg Midazolam HCl (Versed 1 Mg/Ml) Confirm Administered Dose 2 mg .ROUTE .STK-MED ONE Stop: 08/29/17 06:50 Morphine Sulfate (Morphine) 2 mg IVPUSH Q2H PRN PRN Reason: Abdominal Pain Last Admin: 08/28/17 13:56 Dose: 2 mg Morphine Sulfate (Morphine [employer] 150 Mg In 30 Ml) 0 mg IV ASDIRECTED PRN; Protocol PRN Reason: PAIN Last Admin: 08/28/17 14:40 Dose: 150 mg Naloxone HCl (Narcan) 0.1 mg IV ASDIRECTED PRN PRN Reason: RESP DISTRESS Pantoprazole Sodium (Protonix Iv) 40 mg IV DAILY [facility] Last Admin: 08/28/17 08:42 Dose: 40 mg Pantoprazole Sodium (Protonix Iv) 40 mg IV Q12H [facility] Last Admin: 08/30/17 10:40 Dose: Not Given Prochlorperazine Edisylate (Compazine) 5 mg IVPUSH ONETIME ONE Stop: 08/27/17 17:23 Last Admin: 08/27/17 17:57 Dose: 5 mg Propofol (Diprivan 20 Ml) Confirm Administered Dose 200 mg .ROUTE .STK-MED ONE Stop: 08/29/17 06:50 Propranolol HCl (Inderal La) 120 mg PO ONETIME ONE Stop: 08/27/17 19:21 Last Admin: 08/27/17 19:53 Dose: 120 mg Scopolamine (Transderm-Scop) mg TOP ASDIRECTED [facility]
[2017-08-31] MEDS: Scopolamine 1.5 MG Transdermal Patch TRDERM SCH (13:58)
[2017-08-31 14:02] VITALS: BP 145/58
== END 2017-08-31 14:30 | disposition home or self-care (01) | DRG 392 ==
LOC: JP.ED 16:44 → JP.MS 20:29
PROVIDERS: ADMIT Hospitalist; ATTEND Hospitalist
PROC: 0DB68ZX Excision of Stomach, Via Natural or Artificial Opening Endoscopic, Diagnostic (ICD-10-PCS; principal; 2017-08-29)
DX: R10.11 Right upper quadrant pain (principal); I10 Essential (primary) hypertension; K29.60 Other gastritis without bleeding; Z93.1 Gastrostomy status; I12.9 Hypertensive chronic kidney disease with stage 1 through stage 4 chronic kidney disease, or unspecified chronic kidney disease; R10.10 Upper abdominal pain, unspecified; R11.2 Nausea with vomiting, unspecified; N18.9 Chronic kidney disease, unspecified; Z66 Do not resuscitate; Z87.891 Personal history of nicotine dependence; M54.5 Low back pain; G89.29 Other chronic pain; E78.00 Pure hypercholesterolemia, unspecified; E53.8 Deficiency of other specified B group vitamins; H54.7 Unspecified visual loss; Z85.89 Personal history of malignant neoplasm of other organs and systems; Z85.819 Personal history of malignant neoplasm of unspecified site of lip, oral cavity, and pharynx; Z79.82 Long term (current) use of aspirin; Z88.8 Allergy status to other drugs, medicaments and biological substances
CPT/HCPCS: 36415; 74019 ×2; 80053; 81001; 82150; 82272; 83605; 83690; 85025; 96374; 96375; 99285; A9270; J0780; J7040 ×2; 74176; 74176-26; 74181; 74181-26; 80048; 87081; 94762; 97161-GP; 97165-GO; 97530-GP; C9113; J0287; J2060; J2250; J2270; J2704; J3010; J3480; J7030; J7050

== ENCOUNTER 2018-11-21 08:24 | Day surgery (SDC) | payer MEDICARE ==
[2018-11-21] MEDS ORDERED: Sodium Chloride 0.9% 10 ML Syringe FLUSH PRN (08:30)
[2018-11-21 09:46] VITALS: BP 181/92; PULSE 74
--- NOTE | 2018-11-21 13:49 | OR ---
DATE OF PROCEDURE: 11/21/2018 POSTOPERATIVE CARE: Postoperative care will be provided mainly at the [address] [place] [address] [facility] in conjunction with [facility]. PREOPERATIVE DIAGNOSIS: Cataract, right eye. POSTOPERATIVE DIAGNOSIS: Cataract, right eye. PROCEDURE: Phacoemulsification with intraocular lens placement, right eye. ANESTHESIA: Topical and intracameral. ESTIMATED BLOOD LOSS: Minimal. COMPLICATIONS: None. PATHOLOGY SPECIMENS: None. SURGICAL FINDINGS: None. INDICATION FOR PROCEDURE: The patient is a 73-year-old female with history of a visually significant cataract in the right eye, which interfered with activities of daily living. This consisted of a nuclear sclerosis cataract. Following careful discussion of the risks, benefits and alternatives to cataract extraction with intraocular lens placement including blindness and , the patient elected to proceed, and informed, written consent was obtained prior to the procedure. DESCRIPTION OF THE PROCEDURE: The patient was previously identified, and a david placed above the right eye. All sources, including the patient, indicated that the right eye was the correct eye. The patient was subsequently taken to the operating room where standard monitors were applied. The patient was then prepped and draped in the usual sterile fashion for ophthalmic surgery. Attention was first directed at the 12 o'clock position where a paracentesis port was fashioned. Shugar solution followed by Viscoat was instilled into the eye. Attention was then directed to the 8:30 position where a triplanar incision was made in a near-clear manner using a keratome. A continuous capsulorrhexis was then made using a combination of the cystotome and Utrata forceps. Hydrodissection was achieved using a balanced salt solution, and the lens rotated nicely. Phacoemulsification was then done using a modified [id number] technique without complication. Phaco time was 6.81 CDE. The remaining cortex was removed using the irrigation/aspiration handpiece. Provisc was then instilled into the eye. A Technis lens, model [id number], at 21.5 Diopters was then placed in the capsular bag using an Hankinson injector. The remaining viscoelastic was removed using the irrigation/aspiration forceps. All wounds were then checked and found to be watertight. The lid speculum and drapes were removed. Maxitrol ointment was placed in the patient's right eye, and the eye was shielded. The patient tolerated the procedure well. The patient was instructed to follow up tomorrow. All needle and sponge counts were correct at the end of the procedure. There were no surgical findings. Josselyn Cobb MD /[id number]
== END 2018-11-21 10:00 | disposition home or self-care (01) ==
LOC: JP.SDS 08:24
PROVIDERS: ATTEND Ophthalmology
DX: H25.11 Age-related nuclear cataract, right eye (principal); I10 Essential (primary) hypertension; E78.00 Pure hypercholesterolemia, unspecified; F41.9 Anxiety disorder, unspecified; F32.9 Major depressive disorder, single episode, unspecified; Z87.891 Personal history of nicotine dependence; Z88.8 Allergy status to other drugs, medicaments and biological substances; Z98.890 Other specified postprocedural states; Z79.82 Long term (current) use of aspirin; Z79.899 Other long term (current) drug therapy
CPT/HCPCS: 66984; V2632

== ENCOUNTER 2018-12-05 06:16 | Day surgery (SDC) | payer MEDICARE ==
[2018-12-05] MEDS ORDERED: Sodium Chloride 0.9% 10 ML Syringe FLUSH PRN (07:00)
[2018-12-05 09:03] VITALS: BP 183/91; PULSE 80
--- NOTE | 2018-12-05 13:13 | OR ---
DATE OF PROCEDURE: 12/05/2018 POSTOPERATIVE CARE: Postoperative care will be provided mainly at the [address] [place] [address] [facility] in conjunction with [facility]. PREOPERATIVE DIAGNOSIS: Cataract, left eye. POSTOPERATIVE DIAGNOSIS: Cataract, left eye. PROCEDURE: Phacoemulsification with intraocular lens placement, left eye. ANESTHESIA: Topical and intracameral. ESTIMATED BLOOD LOSS: Minimal. COMPLICATIONS: None. PATHOLOGY SPECIMENS: None. SURGICAL FINDINGS: None. INDICATION FOR PROCEDURE: The patient is a 73-year-old female with history of a visually significant cataract in the left eye, which interfered with activities of daily living. This consisted of a nuclear sclerosis cataract. Following careful discussion of the risks, benefits and alternatives to cataract extraction with intraocular lens placement including blindness and , the patient elected to proceed, and informed, written consent was obtained prior to the procedure. DESCRIPTION OF THE PROCEDURE: The patient was previously identified, and a david placed above the left eye. All sources, including the patient, indicated that the left eye was the correct eye. The patient was subsequently taken to the operating room where standard monitors were applied. The patient was then prepped and draped in the usual sterile fashion for ophthalmic surgery. Attention was first directed at the 12 o'clock position where a paracentesis port was fashioned. Shugar solution followed by Viscoat was instilled into the eye. Attention was then directed to the 8:30 position where a triplanar incision was made in a near-clear manner using a keratome. A continuous capsulorrhexis was then made using a combination of the cystotome and Utrata forceps. Hydrodissection was achieved using a balanced salt solution, and the lens rotated nicely. Phacoemulsification was then done using a modified [id number] technique without complication. Phaco time was 6.21 CDE. The remaining cortex was removed using the irrigation/aspiration handpiece. Provisc was then instilled into the eye. A Technis lens, model [id number], at 21.0 diopters was then placed in the capsular bag using an [place] injector. The remaining viscoelastic was removed using the irrigation/aspiration forceps. All wounds were then checked and found to be watertight. The lid speculum and drapes were removed. Maxitrol ointment was placed in the patient's left eye, and the eye was shielded. The patient tolerated the procedure well. The patient was instructed to follow up tomorrow. All needle and sponge counts were correct at the end of the procedure. There were no surgical findings. Josselyn Cobb MD /[id number]
== END 2018-12-05 08:50 | disposition home or self-care (01) ==
LOC: JP.SDS 06:16
PROVIDERS: ATTEND Ophthalmology
DX: H25.12 Age-related nuclear cataract, left eye (principal); I10 Essential (primary) hypertension; E78.00 Pure hypercholesterolemia, unspecified; Z88.8 Allergy status to other drugs, medicaments and biological substances
CPT/HCPCS: 66984; V2632

== ENCOUNTER 2018-12-15 15:17 | Observation (INO) | payer MEDICARE ==
[2018-12-15] MEDS ORDERED: HYDROmorphone 0.5 MG/0.5 ML Syringe IVPUSH ONE ×2 (15:41→17:03)
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
[2018-12-15] MEDS: Sodium Chloride 0.9% 1,000 ML IV SCH ×3 (15:49→21:11)
[2018-12-15] MEDS ORDERED: Levofloxacin/Dextrose 5%-Water 500 MG in Premix Bag 1 BAG IV ONE (16:26)
[2018-12-15] MEDS ORDERED: Levofloxacin/Dextrose 5%-Water 100 ML IV ONE (16:53)
[2018-12-15] MEDS ORDERED: HYDROmorphone 0.5 MG/0.5 ML Syringe ONE (17:06)
--- NOTE | 2018-12-15 17:16 | CRLCR ---
INDICATION: Shortness breath. TECHNIQUE: One view. IMPRESSION: No acute cardiopulmonary disease. Percutaneous gastrostomy tube. Dictated by Raymon Noguera MD @ Dec 15 2018 5:15PM Signed by Dr. Raymon Noguera @ Dec 15 2018 5:15PM
--- NOTE | 2018-12-15 17:18 | CRLCR ---
Pain in hip Technique: AP pelvis and left hip views. Findings: Normal alignment. No acute fractures seen. Pelvis is unremarkable. IMPRESSION: 1. No acute fracture. Dictated by Aniya Garrison MD @ Dec 15 2018 5:16PM Signed by Dr. Aniya Garrison @ Dec 15 2018 5:17PM
--- NOTE | 2018-12-15 17:20 | CRLCT ---
INDICATION: Pain after fall. COMPARISON: Plain film same day. TECHNIQUE: Multi detector imaging bony pelvis with axial coronal and sagittal formats left hip. FINDINGS: Interbody fusion L4-5 level with removed prior posterior fusion hardware. Bone graft harvest site at the right posterior superior ileum. Bones are osteopenic. No definitive sacral fracture. Partial sacralization right side of L5. Hips are appropriately located. No femoral fracture appreciated. No effusion. Large volume of fluid in the urinary bladder. Diverticula of the sigmoid colon. No peritoneal free fluid. Muscle bulk and attenuation is symmetric with no contusion or hematoma findings. IMPRESSION: No source for acute pain. No left hip fracture identified. Large volume of urine in the urinary bladder. Please note that all CT scans at this facility use dose modulation, iterative reconstruction, and/or weight-based dosing when appropriate to reduce radiation dose to as low as reasonably achievable. Dictated by Raymon Noguera MD @ Dec 15 2018 5:17PM Signed by Dr. Raymon Noguera @ Dec 15 2018 5:20PM
[2018-12-15] MEDS ORDERED: HYDROmorphone 1 MG/ML Syringe IM ONE (18:49)
[2018-12-15] MEDS ORDERED: HYDROmorphone 1 MG/ML Syringe IVPUSH ONE (19:01)
[2018-12-15] MEDS ORDERED: LORazepam 2 MG/ML SDV IV PRN (19:40)
[2018-12-15] MEDS ORDERED: Hypromellose 0.4% Ophth Soln 15 ML Bottle EYEBOTH SCH ×2 (19:40→21:00)
[2018-12-15] MEDS ORDERED: Acetaminophen 325 MG Tab PO PRN (19:40)
[2018-12-15] MEDS ORDERED: Docusate Sodium 100 MG Cap PO PRN (19:40)
[2018-12-15] MEDS ORDERED: Enoxaparin 30 MG/0.3 ML Syringe SUBCUT SCH (19:40)
[2018-12-15] MEDS ORDERED: Bisacodyl 5 MG Tab PO PRN (19:40)
[2018-12-15] MEDS ORDERED: Prochlorperazine 10 MG Tab PO PRN (19:40)
[2018-12-15] MEDS ORDERED: Acetaminophen/HYDROcodone 325-10 MG Tab PO PRN (19:40)
[2018-12-15] MEDS ORDERED: Albuterol 0.083% 2.5 MG/3 ML Neb Soln NEB PRN (19:40)
[2018-12-15] MEDS ORDERED: Clotrimazole 1% Crm 30 GM Tube TOP SCH (21:00)
[2018-12-15] MEDS: Gabapentin 300 MG Cap PO SCH (21:03)
[2018-12-15] MEDS: traZODone 50 MG Tab PO SCH (21:03)
[2018-12-15] MEDS: Acetaminophen/HYDROcodone 325-10 MG Tab PO SCH ×2 (21:04→22:04)
[2018-12-15] MEDS: rOPINIRole 0.5 MG Tab PO SCH (21:04)
[2018-12-15] MEDS: HYDROmorphone 1 MG/ML Syringe IVPUSH PRN (21:05)
[2018-12-15] MEDS: Sucralfate Suspension 1 GM/10 ML Cup PO SCH (21:49)
[2018-12-15] MEDS: Albuterol/Ipratropium 3.0-0.5 MG/3 ML Neb Soln NEB SCH (21:50)
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
[2018-12-15] MEDS: Primidone 50 MG Tab PO SCH (22:02)
[2018-12-15] MEDS: Moxifloxacin 0.5% Ophth Soln 3 ML Bottle EYEBOTH SCH (22:42)
[2018-12-15] MEDS: prednisoLONE Acetate 1% Ophth Susp 5 ML Bottle EYEBOTH SCH (22:42)
[2018-12-15] MEDS ORDERED: Enoxaparin 40 MG/0.4 ML Syringe SUBCUT ONE (23:00)
[2018-12-16] MEDS: HYDROmorphone 1 MG/ML Syringe IVPUSH PRN ×2 (00:52→06:09)
[2018-12-16] MEDS: Sodium Chloride 0.9% 1,000 ML IV SCH ×2 (04:23→04:24)
[2018-12-16] MEDS: Moxifloxacin 0.5% Ophth Soln 3 ML Bottle EYEBOTH SCH ×4 (06:13→21:53)
[2018-12-16] MEDS: prednisoLONE Acetate 1% Ophth Susp 5 ML Bottle EYEBOTH SCH ×4 (06:13→21:53)
[2018-12-16] MEDS: Acetaminophen/HYDROcodone 325-10 MG Tab PO SCH ×4 (06:16→21:52)
[2018-12-16] MEDS: Sucralfate Suspension 1 GM/10 ML Cup PO SCH ×4 (06:16→21:53)
[2018-12-16] MEDS ORDERED: Hypromellose 0.4% Ophth Soln 15 ML Bottle EYEBOTH SCH (07:29)
[2018-12-16] MEDS: Albuterol/Ipratropium 3.0-0.5 MG/3 ML Neb Soln NEB SCH ×4 (07:37→21:48)
[2018-12-16] MEDS: Potassium Chloride 20 MEQ Tab.ER PO SCH (08:53)
[2018-12-16] MEDS: Furosemide 20 MG Tab PO SCH (08:54)
[2018-12-16] MEDS: Gabapentin 300 MG Cap PO SCH ×3 (08:54→21:52)
[2018-12-16] MEDS: Pantoprazole 40 MG Tab.CR PO SCH (08:54)
[2018-12-16] MEDS: Primidone 50 MG Tab PO SCH ×2 (08:54→21:52)
[2018-12-16] MEDS: Aspirin 81 MG Tab.EC PO SCH (08:55)
[2018-12-16] MEDS: cefTRIAXone 1 GM in Sodium Chloride 0.9% 50 ML IV SCH (10:06)
[2018-12-16] MEDS: Lactobacillus Rhamnosus GG (Probiotic) Cap PO SCH ×2 (10:07→21:52)
[2018-12-16] MEDS: Hypromellose 0.4% Ophth Soln 15 ML Bottle EYEBOTH SCH (10:07)
[2018-12-16] MEDS ORDERED: CHECK SCOPOLAMINE PATCH TOP SCH (12:00)
--- NOTE | 2018-12-16 12:53 | PCM.PN ---
- General Info Date of Service: 12/16/18 Subjective Update: Ms. Londono is a 73-year-old woman who was admitted through the emergency department observation status because of pain and difficulty with ambulation following a fall. X-rays and CT scan showed no evidence of fracture. Evaluation did document underlying urinary tract infection and she currently is on IV antibiotic therapy pending culture results. She was able to ambulate in the hallway with assistance of physical therapy, we'll plan for an additional 24 hours of hospitalization and reassessment by physical therapy in a.m. Functional Status: Reports: Pain Controlled, Tolerating Diet, Ambulating, Urinating - Review of Systems General: Reports: Weakness. Denies: Fever, Chills Pulmonary: Reports: No Symptoms Cardiovascular: Reports: No Symptoms Gastrointestinal: Reports: No Symptoms Genitourinary: Reports: No Symptoms - Patient Data Vitals - Most Recent: Last Vital Signs Temp 96.7 F 12/16/18 11:56 Pulse 84 12/16/18 11:56 Resp 16 12/16/18 11:56 BP 118/47 L 12/16/18 11:56 Pulse Ox 98 12/16/18 12:39 Weight - Most Recent: 122 lb 7.998 oz I&O - Last 24 Hours: Intake & Output 12/15/18 12/16/18 12/16/18 22:59 06:59 14:59 Intake Total 2100 360 Output Total 250 500 Balance 1850 -140 Lab Results Last 24 Hours: Laboratory Results - last 24 hr 12/15/18 12/15/18 12/15/18 Range/Units 15:56 16:01 16:01 WBC 6.6 (4.5-11.0) K/uL RBC 4.38 (3.30-5.50) M/uL Hgb 11.9 L (12.0-15.0) g/dL Hct 37.9 (36.0-48.0) % MCV 87 (80-98) fL MCH 27 (27-31) pg MCHC 31 L (32-36) % Plt Count 171 (150-400) K/uL Neut % (Auto) 81 H (36-66) % Lymph % (Auto) 11 L (24-44) % [place] % (Auto) 7 H (2-6) % Eos % (Auto) 1 L (2-4) % Baso % (Auto) 0 (0-1) % Sodium 143 (140-148) mmol/L Potassium 3.7 (3.6-5.2) mmol/L Chloride 105 (100-108) mmol/L Carbon Dioxide 29 (21-32) mmol/L Anion Gap 8.7 (5.0-14.0) mmol/L BUN 13 (7-18) mg/dL Creatinine 0.9 (0.6-1.0) mg/dL Est Cr Clr Drug Dosing 48.07 mL/min Estimated GFR (MDRD) > 60 (>60) Glucose 101 (74-106) mg/dL Calcium 8.6 (8.5-10.1) mg/dL Total Bilirubin 0.2 D (0.2-1.0) mg/dL AST 24 (15-37) U/L ALT 18 (12-78) U/L Alkaline Phosphatase 118 H (46-116) U/L Total Protein 7.3 (6.4-8.2) g/dL Albumin 3.1 L (3.4-5.0) g/dL Globulin 4.2 H (2.3-3.5) g/dL Albumin/Globulin Ratio 0.7 L (1.2-2.2) Urine Color Yellow Urine Appearance Slightly cloudy Urine pH 8.0 (4.5-8.0) Ur Specific [place] 1.005 L (1.008-1.030) Urine Protein Negative (NEGATIVE) mg/dL Urine Glucose (UA) Normal (NEGATIVE) mg/dL Urine Ketones Negative (NEGATIVE) mg/dL Urine Occult Blood Trace (NEGATIVE) Urine Nitrite Positive H (NEGATIVE) Urine Bilirubin Negative (NEGATIVE) Urine Urobilinogen Normal (NORMAL) mg/dL Ur Leukocyte Esterase Large (NEGATIVE) Urine RBC 0-5 (0-5) Urine WBC 30-40 H (0-5) Ur Epithelial Cells Few Amorphous Sediment Not seen Urine Bacteria Many Urine Mucus Not seen 12/16/18 12/16/18 Range/Units 04:00 04:00 WBC 4.0 L (4.5-11.0) K/uL RBC 3.70 (3.30-5.50) M/uL Hgb 10.0 L (12.0-15.0) g/dL Hct 32.9 L (36.0-48.0) % MCV 89 (80-98) fL MCH 27 (27-31) pg MCHC 30 L (32-36) % Plt Count 139 L (150-400) K/uL Neut % (Auto) 62 (36-66) % Lymph % (Auto) 26 (24-44) % [place] % (Auto) 10 H (2-6) % Eos % (Auto) 2 (2-4) % Baso % (Auto) 0 (0-1) % Sodium 144 (140-148) mmol/L Potassium 4.2 (3.6-5.2) mmol/L Chloride 110 H (100-108) mmol/L Carbon Dioxide 28 (21-32) mmol/L Anion Gap 10.2 (5.0-14.0) mmol/L BUN 10 (7-18) mg/dL Creatinine 0.8 (0.6-1.0) mg/dL Est Cr Clr Drug Dosing 54.08 mL/min Estimated GFR (MDRD) > 60 (>60) Glucose 92 (74-106) mg/dL Calcium 8.2 L (8.5-10.1) mg/dL Total Bilirubin (0.2-1.0) mg/dL AST (15-37) U/L ALT (12-78) U/L Alkaline Phosphatase (46-116) U/L Total Protein (6.4-8.2) g/dL Albumin (3.4-5.0) g/dL Globulin (2.3-3.5) g/dL Albumin/Globulin Ratio (1.2-2.2) Urine Color Urine Appearance Urine pH (4.5-8.0) Ur Specific [place] (1.008-1.030) Urine Protein (NEGATIVE) mg/dL Urine Glucose (UA) (NEGATIVE) mg/dL Urine Ketones (NEGATIVE) mg/dL Urine Occult Blood (NEGATIVE) Urine Nitrite (NEGATIVE) Urine Bilirubin (NEGATIVE) Urine Urobilinogen (NORMAL) mg/dL Ur Leukocyte Esterase (NEGATIVE) Urine RBC (0-5) Urine WBC (0-5) Ur Epithelial Cells Amorphous Sediment Urine Bacteria Urine Mucus [place] Results Last 24 Hours: Microbiology 12/15/18 16:23 Urine Culture - Preliminary Urine, Bladder Med Orders - Current: Current Medications Hydrocodone Bitart/Acetaminophen ([place] 325-10 Mg) 1 tab PO QID [facility] Last Admin: 12/16/18 10:06 Dose: 1 tab Albuterol (Proventil Neb Soln) 2.5 mg NEB Q4H PRN PRN Reason: Shortness Of Breath/wheezing Albuterol/Ipratropium (Duoneb 3.0-0.5 Mg/3 Ml) 3 ml NEB QIDRT [facility] Last Admin: 12/16/18 11:12 Dose: 3 ml Artificial Tears (Natural Balance Tears) 0 ml EYEBOTH DAILY [facility] Last Admin: 12/16/18 10:07 Dose: 1 drop Artificial Tears (Natural Balance Tears) 0 ml EYEBOTH BEDTIME [facility] Aspirin (Halfprin) 81 mg PO DAILY [facility] Last Admin: 12/16/18 08:55 Dose: 81 mg Bisacodyl (Dulcolax) 5 mg PO DAILY PRN PRN Reason: Constipation Docusate Sodium (Colace) 100 mg PO BID PRN PRN Reason: Constipation Enoxaparin Sodium (Lovenox) 40 mg SUBCUT Q24H [facility] Fentanyl (Duragesic) 100 mcg TOP Q72H [facility] Furosemide (Lasix) 20 mg PO DAILY [facility] Last Admin: 12/16/18 08:54 Dose: 20 mg Gabapentin (Neurontin) 300 mg PO TID [facility] Last Admin: 12/16/18 08:54 Dose: 300 mg Hydromorphone HCl (Dilaudid) 1 mg IVPUSH Q2H PRN PRN Reason: Pain Last Admin: 12/16/18 06:09 Dose: 1 mg Ceftriaxone Sodium 1 gm/ (Sodium Chloride) 50 mls @ 100 mls/hr IV Q24H [facility] Last Admin: 12/16/18 10:06 Dose: 100 mls/hr Lactobacillus Rhamnosus (Culturelle) 1 cap PO BID [facility] Last Admin: 12/16/18 10:07 Dose: 1 cap Lorazepam (Ativan) 1 mg IV Q6H PRN PRN Reason: Nausea/Vomiting Moxifloxacin HCl (Vigamox 0.5% Ophth Soln) 0 ml EYEBOTH QID [facility] Last Admin: 12/16/18 10:08 Dose: 1 drop Check Patch Daily 1 each TOP Q24H [facility] Check Scopolamine (Patch) 1 each TOP Q24H [facility] Pantoprazole Sodium (Protonix) 40 mg PO ACBREAKFAST [facility] Last Admin: 07/22/19 08:54 Dose: 40 mg Potassium Chloride (Klor-Con M20) 20 meq PO DAILY [facility] Last Admin: 12/16/18 08:53 Dose: 20 meq Prednisolone Acetate (Pred Forte 1% Ophth Susp) 0 ml EYEBOTH QID [facility] Last Admin: 12/16/18 10:09 Dose: 1 drop Primidone (Mysoline) 50 mg PO BID [facility] Last Admin: 12/16/18 08:54 Dose: 50 mg Prochlorperazine Maleate (Compazine) 10 mg PO Q6H PRN PRN Reason: Nausea Ropinirole HCl (Requip) 0.5 mg PO BEDTIME [facility] Last Admin: 12/15/18 21:04 Dose: 0.5 mg Scopolamine (Transderm-Scop) 1.5 mg TOP Q72H PRN PRN Reason: Nausea Sucralfate (Carafate) 1 gm PO QID [facility] Last Admin: 12/16/18 10:15 Dose: 1 gm Trazodone HCl (Trazodone) 50 mg PO BEDTIME [facility] Last Admin: 12/15/18 21:03 Dose: 50 mg Discontinued Medications Acetaminophen (Tylenol) 650 mg PO Q4H PRN PRN Reason: Pain Hydrocodone Bitart/Acetaminophen ([place] 325-10 Mg) 1 tab PO Q4H PRN PRN Reason: severe pain Artificial Tears (Natural Balance Tears) 1 ml EYEBOTH BEDTIME [facility] Last Admin: 12/15/18 21:50 Dose: 1 drop Artificial Tears (Natural Balance Tears) 1 ml EYEBOTH DAILY [facility] Last Admin: 12/15/18 22:03 Dose: 1 drop Clotrimazole (Lotrimin Af 1% Crm) 0 gm TOP BID [facility] Last Admin: 12/16/18 00:05 Dose: Not Given Enoxaparin Sodium (Lovenox) 30 mg SUBCUT Q24H [facility] Last Admin: 12/16/18 00:05 Dose: Not Given Enoxaparin Sodium (Lovenox) 40 mg SUBCUT ONETIME ONE Stop: 12/15/18 23:01 Last Admin: 12/16/18 00:17 Dose: 40 mg Hydromorphone HCl (Dilaudid) 0.5 mg IVPUSH ONETIME ONE Stop: 12/15/18 15:42 Last Admin: 12/15/18 15:47 Dose: 0.5 mg Hydromorphone HCl (Dilaudid) 0.5 mg IVPUSH ONETIME ONE Stop: 12/15/18 17:04 Last Admin: 12/15/18 17:08 Dose: 0.5 mg Hydromorphone HCl (Dilaudid) Confirm Administered Dose 0.5 mg .ROUTE .STK-MED ONE Stop: 12/15/18 17:07 Last Admin: 12/16/18 00:06 Dose: Not Given Hydromorphone HCl (Dilaudid) 1 mg IVPUSH ONETIME ONE Stop: 12/15/18 19:02 Last Admin: 12/15/18 19:03 Dose: 1 mg Sodium Chloride (Normal Saline) 1,000 mls @ 250 mls/hr IV ASDIRECTED [facility] Last Infusion: 12/15/18 19:49 Dose: Infused Levofloxacin/Dextrose 500 mg/ (Premix) 100 mls @ 100 mls/hr IV ONETIME ONE Stop: 12/15/18 17:25 Last Admin: 12/15/18 16:55 Dose: 100 mls/hr Levofloxacin/Dextrose (Levaquin In D5w 500 Mg/100 Ml) Confirm Administered Dose 100 mls @ as directed IV .STK-[facility] ONE Stop: 12/15/18 16:54 Last Admin: 12/16/18 00:06 Dose: Not Given Levofloxacin/Dextrose 500 mg/ (Premix) 100 mls @ 100 mls/hr IV Q24H [facility] Sodium Chloride (Normal Saline) 1,000 mls @ 125 mls/hr IV ASDIRECTED [facility] Last Admin: 12/16/18 04:24 Dose: 125 mls/hr Moxifloxacin HCl (Vigamox 0.5% Ophth Soln) 0 ml EYEBOTH QID [facility] Last Admin: 12/16/18 06:13 Dose: Not Given - Exam Quality Assessment: DVT Prophylaxis General: Alert, Oriented, Cooperative Lungs: Clear to Auscultation, Normal Respiratory Effort Cardiovascular: Regular Rate, Regular Rhythm, No Murmurs GI/Abdominal Exam: Soft, Non-Tender, No Organomegaly, No Distention Extremities: No Pedal Edema - Problem List Review Problem List Initiated/Reviewed/Updated: Yes - My Orders Last 24 Hours: My Active Orders 12/16/18 09:00 Lactobacillus Rhamnosus GG [Culturelle] 1 cap PO BID cefTRIAXone [Rocephin] 1 gm Sodium Chloride 0.9% [Normal Saline] 50 ml IV Q24H 12/16/18 10:15 Consult to Physical Therapy [PT Evaluation and Treatment] [CONS] Routine 12/16/18 12:49 Convert IV to Saline Lock [OM.PC] Routine 12/17/18 05:00 BASIC METABOLIC PANEL,BMP [CHEM] Timed CBC WITH AUTO DIFF [HEME] Timed - Plan Plan:: ASSESSMENT AND PLAN LEFT HIP INJURY -Pain medication as needed -position of comfort -pressure reducing mattress Urinary Tract Infection -Saline lock IV -Ceftriaxone 1 g IV every 24 hours pending culture results -Urine culture pending 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 - Goncalves catheter - not indicated CODE STATUS - full code Admission justification - Observation Status -I expect this patient to stay less than 24 hours, not to exceed 96 hours for evaluation and management of this problem. Disposition - I would anticipate discharge Assisted Living tomorrow Primary care physician - Hospitalist: Saumya
[2018-12-16] MEDS: CHECK PATCH DAILY TOP SCH (13:45)
[2018-12-16] MEDS ORDERED: Levofloxacin/Dextrose 5%-Water 500 MG in Premix Bag 1 BAG IV SCH (16:00)
[2018-12-16] MEDS ORDERED: Enoxaparin 40 MG/0.4 ML Syringe SUBCUT SCH (21:00)
[2018-12-16] MEDS: traZODone 50 MG Tab PO SCH (21:52)
[2018-12-16] MEDS: rOPINIRole 0.5 MG Tab PO SCH (21:52)
[2018-12-17] MEDS: Moxifloxacin 0.5% Ophth Soln 3 ML Bottle EYEBOTH SCH ×2 (05:59→10:15)
[2018-12-17] MEDS: prednisoLONE Acetate 1% Ophth Susp 5 ML Bottle EYEBOTH SCH ×2 (06:00→10:14)
[2018-12-17] MEDS: Acetaminophen/HYDROcodone 325-10 MG Tab PO SCH ×2 (06:00→10:14)
[2018-12-17] MEDS: Sucralfate Suspension 1 GM/10 ML Cup PO SCH ×2 (06:00→10:14)
[2018-12-17] MEDS: Albuterol/Ipratropium 3.0-0.5 MG/3 ML Neb Soln NEB SCH ×2 (07:10→10:58)
[2018-12-17] MEDS: Pantoprazole 40 MG Tab.CR PO SCH (08:18)
[2018-12-17] MEDS: Potassium Chloride 20 MEQ Tab.ER PO SCH (08:18)
[2018-12-17] MEDS: Gabapentin 300 MG Cap PO SCH (08:18)
[2018-12-17] MEDS: Furosemide 20 MG Tab PO SCH (08:18)
[2018-12-17] MEDS: Aspirin 81 MG Tab.EC PO SCH (08:18)
[2018-12-17] MEDS: Primidone 50 MG Tab PO SCH (08:18)
[2018-12-17] MEDS: Lactobacillus Rhamnosus GG (Probiotic) Cap PO SCH (08:18)
[2018-12-17] MEDS: Hypromellose 0.4% Ophth Soln 15 ML Bottle EYEBOTH SCH (08:19)
[2018-12-17] MEDS: cefTRIAXone 1 GM in Sodium Chloride 0.9% 50 ML IV SCH (08:21)
[2018-12-17] MEDS ORDERED: Sulfamethoxazole/Trimethoprim 800-160 MG Tab PO SCH (11:00)
[2018-12-17 11:48] VITALS: BP 139/56; PULSE 92
[2018-12-17] MEDS ORDERED: fentaNYL 100 MCG/HR Transdermal Patch TOP SCH (12:00)
[2018-12-17] MEDS ORDERED: Scopolamine 1.5 MG Transdermal Patch TOP PRN (12:00)
[2018-12-17] MEDS: CHECK PATCH DAILY TOP SCH (12:28)
[2018-12-17] MEDS ORDERED: fentaNYL 100 MCG/HR Transdermal Patch TRDERM SCH (12:30)
--- NOTE | 2018-12-17 12:33 | PCM.DCSUM1 ---
Discharge Summary - Hospital Course Brief History: Ms. Londono is a 73-year-old woman who was admitted to observation status for management of urinary tract infection and pain in the left hip region following a fall. - Discharge Data Discharge Date: 12/17/18 Discharge Disposition: Home, Self-Care 01 Condition: Fair - Discharge Diagnosis/Problem(s) (1) Injury of left hip SNOMED Code(s): 111872449 ICD Code: S79.912A - UNSPECIFIED INJURY OF LEFT HIP, INITIAL ENCOUNTER Status: Acute Priority: High Current Visit: Yes (2) UTI (urinary tract infection) SNOMED Code(s): 78716311 ICD Code: N39.0 - URINARY TRACT INFECTION, SITE NOT SPECIFIED Status: Acute Priority: High Current Visit: Yes Qualifiers: Urinary tract infection type: acute cystitis Hematuria presence: with hematuria Qualified Code(s): N30.01 - Acute cystitis with hematuria (3) CKD (chronic kidney disease) SNOMED Code(s): 679550205 ICD Code: N18.9 - CHRONIC KIDNEY DISEASE, UNSPECIFIED Status: Chronic Current Visit: No - Patient Summary/Data Consults: Consultations 12/16/18 10:15 Consult to Physical Therapy [PT Evaluation and Treatment] [CONS] Routine Please Evaluate and Treat. PT Reason for Consult: Pain after fall This query below is only for informational purposes and is not editable. Admission Diagnosis/Problem: Hip pain Hospital Course: Mrs. Londono is a 73-year-old woman who presented to the emergency room after a fall resulting in left hip pain. Ambulance transported her to ER for further evaluation. She arrived with marked pain in the left hip With any movement she is very uncomfortable. She had xrays and a cat scan of the hip which was neg for fracture. Her urine was found to be infected. She was given Levaquin 500mg IV. She has received fentyl iv and she has been given 1 mg of Dilaudid. Pt was admitted to observation status for pain control. She was given fluids intravenously for hydration and pain medication as needed. Antibiotic therapy was converted to ceftriaxone, pending urine culture results. She was seen daily by physical therapy and by the time of discharge was ambulating with use of her walker in the hallways. Urine culture grew out ESBL and she will be discharged home on oral Septra DS 1 by mouth twice a day for 7 days. Activity will be as tolerated and she will resume her usual diet. She will be discharged back to assisted living and will receive physical therapy in the local [facility] which is attached to her assisted living facility. Follow-up appointment will be scheduled with her primary care provider within one week. - Patient Instructions Diet: Usual Diet as Tolerated Activity: As Tolerated Other/Special Instructions: Please schedule follow-up appointment with primary care bite her within one week. - Discharge Plan *PRESCRIPTION DRUG MONITORING PROGRAM REVIEWED*: Not Applicable *COPY OF PRESCRIPTION DRUG MONITORING REPORT IN PATIENT CASEY: Not Applicable Prescriptions/Med Rec: Lactobacillus Rhamnosus GG [Culturelle] 1 cap PO BID #1460 cap Sulfamethoxazole/Trimethoprim [Septra DS] 1 tab PO BID #14 tablet Home Medications: Home Meds fentaNYL [Fentanyl] 100 mcg TOP Q72H 06/26/16 [History] Aspirin [Ecotrin EC] 81 mg PO DAILY 06/30/16 [History] Cyanocobalamin (Vitamin B12) [Vitamin B12] 1,000 mcg IM Q30D 06/30/16 [History] Hypromellose [Genteal Mild] 1 drop EYEBOTH BEDTIME 06/30/16 [History] Loperamide [Imodium] 2 mg PO DAILY PRN 06/30/16 [History] Pravastatin Sodium [Pravachol] 20 mg PO BEDTIME 06/30/16 [History] Prochlorperazine Maleate [Compazine] 10 mg PO Q6H PRN 06/30/16 [History] Scopolamine [Transderm-Scop] 1 patch TOP Q72H PRN 06/30/16 [History] Acetaminophen/HYDROcodone [[place] 325-10 MG] 1 tab PO Q4H PRN #30 tablet [Rx] Gabapentin [Neurontin] 300 mg PO TID 09/22/16 [History] Clotrimazole [Clotrimazole 1%] 1 applic TOP BID 09/26/16 [History] Sucralfate [Carafate] 1 gm PO QID #1200 ml 08/31/17 [Rx] Furosemide 20 mg PO DAILY 04/15/18 [History] Mupirocin Oint [Bactroban Oint] 1 applic TOP BID 04/15/18 [History] Potassium Chloride [Klor-Con M20] 20 meq PO DAILY 04/15/18 [History] Primidone 50 mg PO BID 04/15/18 [History] rOPINIRole [Requip] 0.5 mg PO BEDTIME 04/15/18 [History] traZODone HCl [Trazodone HCl] 50 mg PO BEDTIME 04/15/18 [History] Acetaminophen [Tylenol] 650 mg PO Q4H PRN 11/21/18 [History] Hypromellose [Genteal Mild] 1 drop EYEBOTH DAILY 11/21/18 [History] Moxifloxacin [Vigamox 0.5% Ophth Soln] 1 drop EYEBOTH QID 11/21/18 [History] Pantoprazole Sodium [Protonix] 40 mg PO DAILY 11/21/18 [History] prednisoLONE acetate [Pred Forte 1% Ophth Susp] 1 drop EYEBOTH QID 11/21/18 [ History] Lactobacillus Rhamnosus GG [Culturelle] 1 cap PO BID #1460 cap 12/17/18 [Rx] Sulfamethoxazole/Trimethoprim [Septra DS] 1 tab PO BID #14 tablet 12/17/18 [Rx] Referrals: Bo Aguilar MD [Physician] - 12/24/18 1:40 pm (Please arrive 15 minutes early to register for your appointment.) - Discharge Summary/Plan Comment DC Time >30 min.: No - Patient Data Vitals - Most Recent: Last Vital Signs Temp 95.4 F 12/17/18 11:24 Pulse 92 12/17/18 11:24 Resp 16 12/17/18 11:24 BP 139/56 L 12/17/18 11:24 Pulse Ox 98 12/17/18 11:24 Weight - Most Recent: 122 lb 7.998 oz I&O - Last 24 hours: Intake & Output 12/16/18 12/17/18 12/17/18 22:59 06:59 14:59 Intake Total 560 300 Output Total 1500 1300 Balance -940 -1000 Lab Results - Last 24 hrs: Laboratory Results - last 24 hr 12/17/18 12/17/18 Range/Units 05:03 05:10 WBC 3.8 L (4.5-11.0) K/uL RBC 3.69 (3.30-5.50) M/uL Hgb 10.2 L (12.0-15.0) g/dL Hct 32.8 L (36.0-48.0) % MCV 89 (80-98) fL MCH 28 (27-31) pg MCHC 31 L (32-36) % Plt Count 134 L (150-400) K/uL Neut % (Auto) 64 (36-66) % Lymph % (Auto) 25 (24-44) % [place] % (Auto) 9 H (2-6) % Eos % (Auto) 2 (2-4) % Baso % (Auto) 0 (0-1) % Sodium 142 (140-148) mmol/L Potassium 4.0 (3.6-5.2) mmol/L Chloride 108 (100-108) mmol/L Carbon Dioxide 27 (21-32) mmol/L Anion Gap 7.1 (5.0-14.0) mmol/L BUN 8 (7-18) mg/dL Creatinine 0.7 (0.6-1.0) mg/dL Est Cr Clr Drug Dosing 62.26 mL/min Estimated GFR (MDRD) > 60 (>60) Glucose 95 (74-106) mg/dL Calcium 8.8 (8.5-10.1) mg/dL [place] Results - Last 24 hrs: Microbiology 12/15/18 16:23 Urine Culture - Final Urine, Bladder (Esbl) Escherichia Coli Med Orders - Current: Current Medications Hydrocodone Bitart/Acetaminophen ([place] 325-10 Mg) 1 tab PO QID [facility] Last Admin: 12/17/18 10:14 Dose: 1 tab Albuterol (Proventil Neb Soln) 2.5 mg NEB Q4H PRN PRN Reason: Shortness Of Breath/wheezing Albuterol/Ipratropium (Duoneb 3.0-0.5 Mg/3 Ml) 3 ml NEB QIDRT [facility] Last Admin: 12/17/18 10:58 Dose: 3 ml Artificial Tears (Natural Balance Tears) 0 ml EYEBOTH DAILY [facility] Last Admin: 12/17/18 08:19 Dose: 1 drop Artificial Tears (Natural Balance Tears) 0 ml EYEBOTH BEDTIME [facility] Last Admin: 12/16/18 21:51 Dose: 1 drop Aspirin (Halfprin) 81 mg PO DAILY [facility] Last Admin: 12/17/18 08:18 Dose: 81 mg Bisacodyl (Dulcolax) 5 mg PO DAILY PRN PRN Reason: Constipation Docusate Sodium (Colace) 100 mg PO BID PRN PRN Reason: Constipation Enoxaparin Sodium (Lovenox) 40 mg SUBCUT Q24H [facility] Last Admin: 12/16/18 21:53 Dose: 40 mg Fentanyl (Duragesic) 100 mcg TRDERM Q72H [facility] Furosemide (Lasix) 20 mg PO DAILY [facility] Last Admin: 12/17/18 08:18 Dose: 20 mg Gabapentin (Neurontin) 300 mg PO TID [facility] Last Admin: 12/17/18 08:18 Dose: 300 mg Lactobacillus Rhamnosus (Culturelle) 1 cap PO BID [facility] Last Admin: 12/17/18 08:18 Dose: 1 cap Lorazepam (Ativan) 1 mg IV Q6H PRN PRN Reason: Nausea/Vomiting Moxifloxacin HCl (Vigamox 0.5% Ophth Soln) 0 ml EYEBOTH QID [facility] Last Admin: 12/17/18 10:15 Dose: 1 drop Check Patch Daily 1 each TOP Q24H [facility] Last Admin: 12/16/18 13:45 Dose: Not Given Check Scopolamine (Patch) 1 each TOP Q24H [facility] Last Admin: 12/16/18 13:45 Dose: Not Given Pantoprazole Sodium (Protonix) 40 mg PO ACBREAKFAST [facility] Last Admin: 12/17/18 08:18 Dose: 40 mg Potassium Chloride (Klor-Con M20) 20 meq PO DAILY [facility] Last Admin: 12/17/18 08:18 Dose: 20 meq Prednisolone Acetate (Pred Forte 1% Ophth Susp) 0 ml EYEBOTH QID [facility] Last Admin: 12/17/18 10:14 Dose: 1 drop Primidone (Mysoline) 50 mg PO BID [facility] Last Admin: 12/17/18 08:18 Dose: 50 mg Prochlorperazine Maleate (Compazine) 10 mg PO Q6H PRN PRN Reason: Nausea Ropinirole HCl (Requip) 0.5 mg PO BEDTIME [facility] Last Admin: 12/16/18 21:52 Dose: 0.5 mg Scopolamine (Transderm-Scop) 1.5 mg TOP Q72H PRN PRN Reason: Nausea Sucralfate (Carafate) 1 gm PO QID [facility] Last Admin: 12/17/18 10:14 Dose: 1 gm Trazodone HCl (Trazodone) 50 mg PO BEDTIME [facility] Last Admin: 12/16/18 21:52 Dose: 50 mg Trimethoprim/Sulfamethoxazole (Septra Ds) 1 tab PO BID [facility] Last Admin: 12/17/18 12:24 Dose: 1 tab Discontinued Medications Acetaminophen (Tylenol) 650 mg PO Q4H PRN PRN Reason: Pain Hydrocodone Bitart/Acetaminophen ([place] 325-10 Mg) 1 tab PO Q4H PRN PRN Reason: severe pain Artificial Tears (Natural Balance Tears) 1 ml EYEBOTH BEDTIME [facility] Last Admin: 12/15/18 21:50 Dose: 1 drop Artificial Tears (Natural Balance Tears) 1 ml EYEBOTH DAILY [facility] Last Admin: 12/15/18 22:03 Dose: 1 drop Clotrimazole (Lotrimin Af 1% Crm) 0 gm TOP BID [facility] Last Admin: 12/16/18 00:05 Dose: Not Given Enoxaparin Sodium (Lovenox) 30 mg SUBCUT Q24H [facility] Last Admin: 12/16/18 00:05 Dose: Not Given Enoxaparin Sodium (Lovenox) 40 mg SUBCUT ONETIME ONE Stop: 12/15/18 23:01 Last Admin: 12/16/18 00:17 Dose: 40 mg Hydromorphone HCl (Dilaudid) 0.5 mg IVPUSH ONETIME ONE Stop: 12/15/18 15:42 Last Admin: 12/15/18 15:47 Dose: 0.5 mg Hydromorphone HCl (Dilaudid) 0.5 mg IVPUSH ONETIME ONE Stop: 12/15/18 17:04 Last Admin: 12/15/18 17:08 Dose: 0.5 mg Hydromorphone HCl (Dilaudid) Confirm Administered Dose 0.5 mg .ROUTE .STK-MED ONE Stop: 12/15/18 17:07 Last Admin: 12/16/18 00:06 Dose: Not Given Hydromorphone HCl (Dilaudid) 1 mg IVPUSH ONETIME ONE Stop: 12/15/18 19:02 Last Admin: 12/15/18 19:03 Dose: 1 mg Hydromorphone HCl (Dilaudid) 1 mg IVPUSH Q2H PRN PRN Reason: Pain Last Admin: 12/16/18 06:09 Dose: 1 mg Sodium Chloride (Normal Saline) 1,000 mls @ 250 mls/hr IV ASDIRECTED [facility] Last Infusion: 12/15/18 19:49 Dose: Infused Levofloxacin/Dextrose 500 mg/ (Premix) 100 mls @ 100 mls/hr IV ONETIME ONE Stop: 12/15/18 17:25 Last Admin: 12/15/18 16:55 Dose: 100 mls/hr Levofloxacin/Dextrose (Levaquin In D5w 500 Mg/100 Ml) Confirm Administered Dose 100 mls @ as directed IV .STK-MED ONE Stop: 12/15/18 16:54 Last Admin: 12/16/18 00:06 Dose: Not Given Levofloxacin/Dextrose 500 mg/ (Premix) 100 mls @ 100 mls/hr IV Q24H [facility] Sodium Chloride (Normal Saline) 1,000 mls @ 125 mls/hr IV ASDIRECTED [facility] Last Admin: 12/16/18 04:24 Dose: 125 mls/hr Ceftriaxone Sodium 1 gm/ (Sodium Chloride) 50 mls @ 100 mls/hr IV Q24H [facility] Last Admin: 12/17/18 08:21 Dose: 100 mls/hr Moxifloxacin HCl (Vigamox 0.5% Ophth Soln) 0 ml EYEBOTH QID [facility] Last Admin: 12/16/18 06:13 Dose: Not Given - Exam General: Reports: Alert, Oriented, Cooperative, Mild Distress Lungs: Reports: Clear to Auscultation, Normal Respiratory Effort Cardiovascular: Reports: Regular Rate, Regular Rhythm, No Murmurs GI/Abdominal Exam: Soft, Non-Tender, No Organomegaly, No Distention
== END 2018-12-17 13:43 | disposition home or self-care (01) ==
LOC: JP.ED 15:17 → JP.MS 19:10
PROVIDERS: ADMIT Internal Medicine; ATTEND Hospitalist
DX: M25.552 Pain in left hip (principal); N30.01 Acute cystitis with hematuria; G89.29 Other chronic pain; M54.5 Low back pain; I12.9 Hypertensive chronic kidney disease with stage 1 through stage 4 chronic kidney disease, or unspecified chronic kidney disease; N18.9 Chronic kidney disease, unspecified; E78.00 Pure hypercholesterolemia, unspecified; W19.XXXA Unspecified fall, initial encounter; Z88.8 Allergy status to other drugs, medicaments and biological substances; Z93.1 Gastrostomy status; Z85.818 Personal history of malignant neoplasm of other sites of lip, oral cavity, and pharynx; Z87.891 Personal history of nicotine dependence; Z79.82 Long term (current) use of aspirin; Z79.899 Other long term (current) drug therapy
CPT/HCPCS: 36415; 71045; 73502; 73700; 80048; 80053; 81001; 85025; 87086; 87088; 87186; 94640; 94762; 96361; 96365; 96375; 96376; 97116; 97161; 99285; A9270; J0696; J1170; J1650; J1956; J7030; J7050; 96366; 96367; 96372; 99284; G0378; J7620-GY

== ENCOUNTER 2019-10-14 05:25 | Day surgery (SDC) | payer MEDICARE ==
[2019-10-14] MEDS ORDERED: Dextrose 5%-Lactated Ringers 1,000 ML IV SCH (06:00)
[2019-10-14] MEDS ORDERED: Lidocaine 1% with EPINEPHrine 1:100,000 50 ML MDV ONE (06:41)
[2019-10-14] MEDS ORDERED: Bupivacaine 0.5% 50 ML MDV ONE (06:41)
[2019-10-14] MEDS ORDERED: Propofol 200 MG/20 ML SDV ONE (07:13)
[2019-10-14 08:37] VITALS: BP 135/67; PULSE 65
--- NOTE | 2019-10-22 16:12 | OR ---
DATE OF PROCEDURE: 10/14/2019 SURGEON: Berny Bradley MD PREOPERATIVE DIAGNOSIS: Fractured gastrostomy tube. POSTOPERATIVE DIAGNOSIS: Fractured gastrostomy tube. OPERATIVE PROCEDURE: Replacement of gastrostomy tube (02490). ANESTHESIA: IV sedation. INDICATION FOR PROCEDURE: A 74-year-old presenting with a fractured gastrostomy tube. This is quite tender and the patient wishes to have some IV sedation performed for the change out of the tube. The potential risks were reviewed which were minimal and the patient wishes to proceed. DETAILS OF PROCEDURE: On the patient's OR bed, she received IV sedation. Previous gastrostomy tube was then removed after deflation of the balloon and new 26-Irish balloon catheter tube was then placed without difficulty. This was inflated with 10 mL of saline and this was pulled snugly up to minimize leakage. Dressing applied. The patient was taken to the recovery room in satisfactory condition. Berny Bradley MD /[id number]
== END 2019-10-14 08:58 | disposition home or self-care (01) ==
LOC: JP.SDS 05:25
PROVIDERS: ATTEND Surgery
DX: K94.23 Gastrostomy malfunction (principal); I12.9 Hypertensive chronic kidney disease with stage 1 through stage 4 chronic kidney disease, or unspecified chronic kidney disease; N18.9 Chronic kidney disease, unspecified
CPT/HCPCS: 43762; J2704; J7121; J3490

== ENCOUNTER 2021-01-09 16:01 | Emergency (ER) | payer MEDICARE ==
[2021-01-09] MEDS ORDERED: HYDROmorphone 0.5 MG/0.5 ML Syringe IVPUSH ONE (16:06)
[2021-01-09] MEDS ORDERED: Ondansetron 4 MG/2 ML SDV IVPUSH ONE (16:07)
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
[2021-01-09] MEDS ORDERED: HYDROmorphone 1 MG/ML Syringe IVPUSH ONE ×2 (17:03→18:20)
[2021-01-09 18:32] VITALS: BP 153/70; PULSE 62
--- NOTE | 2021-01-09 19:00 | CRLCT ---
For Patients: As a result of the Century Cures Act, medical imaging exams and procedure reports are released immediately into your electronic medical record. You may view this report before your referring provider. If you have questions, please contact your health care provider. INDICATION: Right hip pain. COMPARISON: None available TECHNIQUE: CT examination of the pelvis and right hip was performed without contrast enhancement using spiral technique. Two mm thick axial sections of the pelvis were obtained from the superior iliac crest through the pubic symphysis. Small [id number] images of the right hip are obtained with 2 millimeter thick sections and bone algorithm in the sagittal, axial, and coronal planes. Oral contrast was not administered. Please note that all CT scans at this facility use dose modulation, iterative reconstruction, and/or weight-based dosing when appropriate to reduce radiation dose to as low as reasonably achievable. FINDINGS: : The right hip is normal in appearance, with no sign of fracture, dislocation, destructive lesion, or osteoarthritis. A bone graft donor site is seen in the right iliac wing at the level of the sacroiliac joint. The sacroiliac joints and pubic symphysis are intact. The bony pelvis is also intact. The left hip is normal in appearance with no sign of any acute injury or osteoarthritis. There are changes of fusion at L5-S1 with anatomic alignment of the few segments and complete absence of the disc centrally. Interbody strut is in satisfactory position. Bone graft material is seen dorsal to the lamina and facet joints. Tunnels are seen from removal of intrapedicular screws at L5, S1, and S2. In the pelvis, the appendix is nonvisualized, but there is no sign of an inflammatory process in the area of the appendix. There is severe sigmoid diverticulosis without evidence of diverticulitis. The loops of small bowel and colon in the pelvis are otherwise normal in appearance. The uterus is absent and the adnexal regions are normal in appearance. The urinary bladder is normal in appearance. There is no sign of pelvic or inguinal mass or adenopathy. There is no sign of free fluid or free air in the pelvis. IMPRESSION: Normal CT appearance of the right hip. No sign of any fracture or osteoarthritis. Satisfactory appearance status post fusion at L5-S1. Severe diverticulosis of the sigmoid colon with no sign of diverticulitis. Status post hysterectomy. Please note that all CT scans at this facility use dose modulation, iterative reconstruction, and/or weight-based dosing when appropriate to reduce radiation dose to as low as reasonably achievable. Dictated by Zhou Pierre MD @ 01/09/2021 6:58:[address] Zhou Pierre @ Jan 09 2021 6:58PM
--- NOTE | 2021-01-10 11:21 | CR ---
Hip Min 2V or 3V Rt CLINICAL HISTORY: Fall FINDINGS: No fracture or dislocation is identified. Articular surfaces are smooth Impression: Negative
--- NOTE | 2021-01-10 11:22 | CR ---
CHEST: AP supine CLINICAL HISTORY:Hip pain COMPARISON:None FINDINGS: The heart size, pulmonary vascularity and hilar structures are normal. No infiltrate effusion or pneumothorax is seen. There is diffuse interstitial prominence which is felt to be fibrosis IMPRESSION: No acute cardiopulmonary process. Fibrotic changes in lung bases
== END 2021-01-09 19:35 | disposition home or self-care (01) ==
LOC: JP.ED 16:01
DX: S70.01XA Contusion of right hip, initial encounter (principal); I10 Essential (primary) hypertension; E78.00 Pure hypercholesterolemia, unspecified; F17.200 Nicotine dependence, unspecified, uncomplicated; Z88.8 Allergy status to other drugs, medicaments and biological substances; Z79.82 Long term (current) use of aspirin; Z79.899 Other long term (current) drug therapy; W18.09XA Striking against other object with subsequent fall, initial encounter
CPT/HCPCS: 36415; 71045; 71045-26; 73502-26-RT; 73502-RT; 73700-RT; 80053; 81001; 85025; 96374; 96376; 99284-25; J1170

== ENCOUNTER 2021-08-07 09:21 | Emergency (ER) | payer MEDICARE ==
[2021-08-07] MEDS ORDERED: Morphine 4 MG/ML Syringe IVPUSH PRN (09:44)
[2021-08-07] MEDS ORDERED: Nitroglycerin 0.4 MG Tab.SL SL PRN (09:44)
[2021-08-07] MEDS ORDERED: Alum Hydrox/Mag Hydrox/Simeth 15 ML, Lidocaine 2% 15 ML PO ONE ×2 (10:56)
[2021-08-07] MEDS ORDERED: HYDROmorphone 0.5 MG/0.5 ML Syringe IVPUSH ONE (11:31)
[2021-08-07] MEDS ORDERED: Sodium Chloride 0.9% 75 ML IV SCH (14:15)
[2021-08-07] MEDS ORDERED: Iopamidol 755 Mg/ML 100 ML Bottle IV SCH (14:15)
[2021-08-07 15:57] VITALS: BP 150/67; PULSE 64
== END 2021-08-07 16:11 | disposition home or self-care (01) ==
LOC: JP.ED 09:21
DX: R07.89 Other chest pain (principal); E78.00 Pure hypercholesterolemia, unspecified; I10 Essential (primary) hypertension; Z79.899 Other long term (current) drug therapy; Z88.8 Allergy status to other drugs, medicaments and biological substances
CPT/HCPCS: 36415; 71045; 71045-26; 71275; 80053; 84484; 85025; 93005; 96374; 96375; 99283; 99285-25; A9270-GY; J1170; J2270; Q9967

== ENCOUNTER 2022-01-18 23:34 | Emergency (ER) | payer MEDICARE ==
[2022-01-19 00:31] LABS: ESTIMATED GFR 52 mL/min (>60)
[2022-01-19] MEDS ORDERED: Acetaminophen 325 MG Tab PO ONE (00:32)
[2022-01-19] MEDS ORDERED: HYDROmorphone 0.5 MG/0.5 ML Syringe IVPUSH ONE ×2 (01:25→03:02)
[2022-01-19] MEDS ORDERED: Acetaminophen/HYDROcodone 325-5 MG Tab PO ONE (05:56)
[2022-01-19 06:06] VITALS: BP 107/39; PULSE 60
== END 2022-01-19 07:30 | disposition home or self-care (01) ==
LOC: JP.ED 23:34
DX: S06.301A Unspecified focal traumatic brain injury with loss of consciousness of 30 minutes or less, initial encounter (principal); E87.6 Hypokalemia; I10 Essential (primary) hypertension; Z88.8 Allergy status to other drugs, medicaments and biological substances; Z79.899 Other long term (current) drug therapy; Z79.82 Long term (current) use of aspirin; Z90.49 Acquired absence of other specified parts of digestive tract; Z90.710 Acquired absence of both cervix and uterus; Z20.822 Contact with and (suspected) exposure to COVID-19; W01.10XA Fall on same level from slipping, tripping and stumbling with subsequent striking against unspecified object, initial encounter
CPT/HCPCS: 36415; 70450; 80053; 81001; 85025; 85610; 85730; 96374; 96376; 99284; A9270; J1170; U0002

== ENCOUNTER 2024-06-28 16:28 | Emergency (ER) | payer MEDICARE ==
[2024-06-28 17:01] LABS: BASOPHILS PERCENT AUTO 0.1 % (0.1-1.3); EOSINOPHILS PERCENT AUTO 0.1 % (0.0-5.4); HEMATOCRIT 42.7 % (34.3-46.0); IMMATURE GRAN ABSOLUTE AUTO 0.04 K/uL (0.00-0.23); IMMATURE GRAN PERCENT AUTO 0.4 % (0.0-0.7); LYMPHOCYTES ABSOLUTE AUTO 0.71 K/uL (0.8-3.3); LYMPHOCYTES PERCENT AUTO 7.2 % (11.4-47.7); MEAN CORPUSCULAR HEMOGLOBIN 28.4 pg (31.6-35.5); MEAN CORPUSCULAR HGB CONC 35.1 g/dL (31.6-35.5); MEAN CORPUSCULAR VOLUME 80.9 fL (81.4-99.0); MONOCYTES ABSOLUTE AUTO 0.62 K/uL (0.20-0.90); MONOCYTES PERCENT AUTO 6.3 % (3.3-12.6); NEUTROPHILS ABSOLUTE AUTO 8.48 K/uL (1.0-7.6); NEUTROPHILS PERCENT AUTO 85.9 % (40.0-78.1); PLATELET COUNT,PLT 207 K/uL (130-375); RED BLOOD CELL COUNT 5.28 M/uL (3.77-5.24); WHITE BLOOD CELL COUNT,WBC 9.9 K/uL (3.2-11.0)
[2024-06-28 17:02] LABS: BASOPHILS ABSOLUTE AUTO 0.01 K/uL (0.00-0.10); EOSINOPHILS ABSOLUTE AUTO 0.01 K/uL (0.00-0.40)
[2024-06-28 17:28] LABS: A/G RATIO 0.9 (1.2-2.2); ALANINE AMINOTRANSFERASE,ALT 15 U/L (12-78); ALBUMIN 4.1 g/dL (3.4-5.0); ALKALINE PHOSPHATASE 78 U/L (46-116); ANION GAP 19.3 mmol/L (5.0-14.0); ASPARTATE AMNIOTRANSFERASE,AST 25 U/L (15-37); BILIRUBIN TOTAL 0.5 mg/dL (0.2-1.0); BLOOD UREA NITROGEN,BUN 14 mg/dL (7-18); CALCIUM 9.6 mg/dL (8.5-10.1); CARBON DIOXIDE,CO2 26 mmol/L (21-32); CHLORIDE,CL 97 mmol/L (100-108); CREATININE 0.9 mg/dL (0.6-1.0); EST CRCL DRUG DOSING (CG) 43.55 mL/min; ESTIMATED GFR 65 mL/min (>60); GLUCOSE RANDOM 136 mg/dL (74-106); POTASSIUM,K 3.3 mmol/L (3.6-5.2); PRO B-TYPE NATRIUR PEPT,BNPPRO 2301 pg/mL (5-450); PROTEIN TOTAL,TP 8.5 g/dL (6.4-8.2); SODIUM,NA 139 mmol/L (140-148)
[2024-06-28 17:29] LABS: CORONAVIRUS COVID-19 NAA NEGATIVE (NEGATIVE); INFLUENZA A NAA NEGATIVE (NEGATIVE); INFLUENZA B NAA NEGATIVE (NEGATIVE); RESPIRATORY SYNCYTIAL VIR NAA NEGATIVE (NEGATIVE)
[2024-06-28] MEDS: Labetalol 20 MG/4 ML Syringe IVPUSH ONE ×2 (17:39→18:52)
[2024-06-28 18:22] LABS: APPEARANCE,URINE CLEAR (CLEAR); BILIRUBIN,URINE NEGATIVE (NEGATIVE); COLOR,URINE YELLOW (YELLOW); GLUCOSE,URINE NEGATIVE (NEGATIVE); KETONES,URINE TRACE mg/dL (NEGATIVE); LEUKOCYTE ESTERASE,URINE NEGATIVE (NEGATIVE); NITRITE,URINE NEGATIVE (NEGATIVE); OCCULT BLOOD,URINE SMALL (NEGATIVE); PH,URINE 7.5 (5.0-8.0); PROTEIN,URINE >=300 mg/dL (NEGATIVE); UROBILINOGEN,URINE 0.2 EU/dL (0.2-1.0)
[2024-06-28 18:29] LABS: AMORPHOUS SEDIMENT,URINE NOT SEEN; BACTERIA,URINE MANY; EPITHELIAL CELLS,URINE RARE; MUCUS,URINE RARE; WBC,URINE 0-5 (0-5)
[2024-06-28] MEDS: Magnesium Sulfate/Water Premix 2 GM in Premix Bag 1 BAG IV ONE (18:55)
[2024-06-28] MEDS: LORazepam 0.5 MG Tab PO ONE (19:49)
[2024-06-28] MEDS: hydrALAZINE 20 MG/ML SDV IVPUSH ONE (19:53)
[2024-06-28] MEDS: Potassium Chloride 10 MEQ in Premix Bag 1 BAG IV SCH (20:03)
[2024-06-28] MEDS: Potassium Chloride 20 MEQ in Premix Bag 1 BAG IV ONE (20:04)
[2024-06-28] MEDS: Prochlorperazine 10 MG/2 ML SDV IVPUSH ONE (20:08)
[2024-06-28] MEDS: Gabapentin 300 MG Cap PO ONE (21:24)
[2024-06-28] MEDS: traZODone 50 MG Tab PO ONE (21:24)
[2024-06-29 06:32] LABS: APPEARANCE,URINE CLOUDY (CLEAR); BILIRUBIN,URINE NEGATIVE (NEGATIVE); COLOR,URINE YELLOW (YELLOW); GLUCOSE,URINE NEGATIVE (NEGATIVE); KETONES,URINE NEGATIVE (NEGATIVE); LEUKOCYTE ESTERASE,URINE SMALL (NEGATIVE); NITRITE,URINE NEGATIVE (NEGATIVE); OCCULT BLOOD,URINE MODERATE (NEGATIVE); PH,URINE 6.5 (5.0-8.0); PROTEIN,URINE >=300 mg/dL (NEGATIVE); UROBILINOGEN,URINE 0.2 EU/dL (0.2-1.0)
[2024-06-29 06:40] LABS: AMORPHOUS SEDIMENT,URINE NOT SEEN; BACTERIA,URINE FEW; EPITHELIAL CELLS,URINE FEW; MUCUS,URINE FEW; WBC,URINE 20-30 (0-5)
[2024-06-29 08:41] VITALS: BP 162/84; PULSE 84
== END 2024-06-29 08:42 | disposition home or self-care (01) ==
LOC: JP.ED 16:28
DX: I16.0 Hypertensive urgency (principal); E87.6 Hypokalemia; E83.42 Hypomagnesemia; R41.0 Disorientation, unspecified; R06.9 Unspecified abnormalities of breathing; Z90.49 Acquired absence of other specified parts of digestive tract; Z90.710 Acquired absence of both cervix and uterus; Z88.8 Allergy status to other drugs, medicaments and biological substances; Z79.82 Long term (current) use of aspirin; Z79.899 Other long term (current) drug therapy
CPT/HCPCS: 0241U; 36415; 70450; 71045; 80053; 81001; 83735; 83880; 84132; 85025; 87086; 96365; 96366; 96367; 96368; 96375; 96376; 99285; A9270; J0360; J0780; J1920; J3475; J3480; 87088; 87186

== ENCOUNTER 2024-06-30 06:23 | Emergency (ER) | payer MEDICARE ==
[2024-06-30] MEDS ORDERED: Prochlorperazine 10 MG Tab PO PRN (07:44)
[2024-06-30] MEDS ORDERED: Scopalamine 1mg/3day Transdermal Patch TOP PRN (07:44)
[2024-06-30] MEDS ORDERED: Enalaprilat 1.25 MG/ML SDV IVPUSH ONE (07:46)
[2024-06-30] MEDS ORDERED: Sodium Chloride 0.9% 10 ML Syringe FLUSH PRN (07:52)
[2024-06-30 07:56] LABS: BASOPHILS PERCENT AUTO 0.1 % (0.1-1.3); HEMATOCRIT 45.3 % (34.3-46.0); HEMOGLOBIN 15.4 g/dL (11.2-15.5); IMMATURE GRAN ABSOLUTE AUTO 0.05 K/uL (0.00-0.23); IMMATURE GRAN PERCENT AUTO 0.4 % (0.0-0.7); LYMPHOCYTES ABSOLUTE AUTO 1.01 K/uL (0.8-3.3); LYMPHOCYTES PERCENT AUTO 8.6 % (11.4-47.7); MEAN CORPUSCULAR HEMOGLOBIN 27.9 pg (31.6-35.5); MEAN CORPUSCULAR VOLUME 82.1 fL (81.4-99.0); MONOCYTES ABSOLUTE AUTO 0.89 K/uL (0.20-0.90); MONOCYTES PERCENT AUTO 7.5 % (3.3-12.6); NEUTROPHILS ABSOLUTE AUTO 9.84 K/uL (1.0-7.6); NEUTROPHILS PERCENT AUTO 83.4 % (40.0-78.1); PLATELET COUNT,PLT 200 K/uL (130-375); RED BLOOD CELL COUNT 5.52 M/uL (3.77-5.24); WHITE BLOOD CELL COUNT,WBC 11.8 K/uL (3.2-11.0)
[2024-06-30 07:58] LABS: BASOPHILS ABSOLUTE AUTO 0.01 K/uL (0.00-0.10)
[2024-06-30] MEDS: Sodium Chloride 0.9% 1,000 ML IV STA (08:11)
[2024-06-30] MEDS: cefTRIAXone 1 GM in Sodium Chloride 0.9% 50 ML IV ONE (08:12)
[2024-06-30 08:18] LABS: A/G RATIO 0.9 (1.2-2.2); ALANINE AMINOTRANSFERASE,ALT 32 U/L (12-78); ALBUMIN 3.9 g/dL (3.4-5.0); ALKALINE PHOSPHATASE 79 U/L (46-116); ASPARTATE AMNIOTRANSFERASE,AST 44 U/L (15-37); BILIRUBIN TOTAL 0.5 mg/dL (0.2-1.0); BLOOD UREA NITROGEN,BUN 19 mg/dL (7-18); CALCIUM 9.7 mg/dL (8.5-10.1); CARBON DIOXIDE,CO2 29 mmol/L (21-32); CHLORIDE,CL 99 mmol/L (100-108); EST CRCL DRUG DOSING (CG) 32.66 mL/min; ESTIMATED GFR 57 mL/min (>60); GLUCOSE RANDOM 118 mg/dL (74-106); POTASSIUM,K 3.5 mmol/L (3.6-5.2); PROTEIN TOTAL,TP 8.2 g/dL (6.4-8.2); SODIUM,NA 140 mmol/L (140-148)
[2024-06-30 08:19] LABS: ANION GAP 15.5 mmol/L (5.0-14.0)
[2024-06-30] MEDS: Lisinopril 10 MG Tab PO SCH (08:20)
[2024-06-30] MEDS: Carbidopa/Levodopa 25-100 MG Tab PO SCH (08:20)
[2024-06-30] MEDS: Pantoprazole 40 MG Tab.CR PO SCH (08:21)
[2024-06-30] MEDS: Furosemide 20 MG Tab PO SCH (08:21)
[2024-06-30] MEDS: Gabapentin 300 MG Cap PO SCH (08:22)
[2024-06-30] MEDS: DULoxetine 30 MG Cap PO SCH (08:22)
[2024-06-30] MEDS: Pentoxifylline 400 MG Tab.ER PO SCH (08:22)
[2024-06-30] MEDS: Iopamidol 612 MG/ML 100 ML Bottle IV PRN (08:29)
[2024-06-30] MEDS: Sodium Chloride 0.9% 10 ML Syringe FLUSH PRN (08:29)
[2024-06-30] MEDS: Sodium Chloride 0.9% 80 ML IV ONE (08:29)
[2024-06-30 09:03] LABS: CORONAVIRUS COVID-19 NAA NEGATIVE (NEGATIVE); INFLUENZA A NAA NEGATIVE (NEGATIVE); INFLUENZA B NAA NEGATIVE (NEGATIVE); RESPIRATORY SYNCYTIAL VIR NAA NEGATIVE (NEGATIVE)
[2024-06-30] MEDS: Ketorolac 30 MG/ML SDV IVPUSH ONE (09:59)
[2024-06-30 14:51] VITALS: BP 164/85; PULSE 63
[2024-06-30] MEDS ORDERED: DULoxetine 30 MG Cap PO SCH (21:00)
== END 2024-06-30 14:30 | disposition home or self-care (01) ==
LOC: JP.ED 06:23
DX: R53.1 Weakness (principal); I10 Essential (primary) hypertension; Z88.5 Allergy status to narcotic agent; Z88.8 Allergy status to other drugs, medicaments and biological substances; Z79.899 Other long term (current) drug therapy; Z90.49 Acquired absence of other specified parts of digestive tract
CPT/HCPCS: 0241U; 36415; 71045; 74177; 80053; 83605; 84145; 85025; 96361; 96365; 96375; 99285; A9270; J0696; J1885; J7030; Q9967

== ENCOUNTER 2025-03-31 21:45 | Inpatient (IN) | payer MEDICAID, MEDICARE ==
[2025-03-31 22:35] LABS: BASOPHILS PERCENT AUTO 0.3 % (0.1-1.3); EOSINOPHILS ABSOLUTE AUTO 0.19 K/uL (0.00-0.40); EOSINOPHILS PERCENT AUTO 2.5 % (0.0-5.4); IMMATURE GRAN ABSOLUTE AUTO 0.08 K/uL (0.00-0.23); IMMATURE GRAN PERCENT AUTO 1.0 % (0.0-0.7); LYMPHOCYTES ABSOLUTE AUTO 1.23 K/uL (0.8-3.3); LYMPHOCYTES PERCENT AUTO 16.0 % (11.4-47.7); MONOCYTES ABSOLUTE AUTO 0.69 K/uL (0.20-0.90); MONOCYTES PERCENT AUTO 9.0 % (3.3-12.6); NEUTROPHILS ABSOLUTE AUTO 5.46 K/uL (1.0-7.6); NEUTROPHILS PERCENT AUTO 71.2 % (40.0-78.1); PLATELET COUNT,PLT 185 K/uL (130-375); RED BLOOD CELL COUNT 2.12 M/uL (3.77-5.24); WHITE BLOOD CELL COUNT,WBC 7.7 K/uL (3.2-11.0)
[2025-03-31 23:13] LABS: BASOPHILS ABSOLUTE AUTO 0.02 K/uL (0.00-0.10)
[2025-03-31 23:37] LABS: A/G RATIO 0.8 (1.2-2.2); ALANINE AMINOTRANSFERASE,ALT 10 U/L (12-78); ASPARTATE AMNIOTRANSFERASE,AST 21 U/L (15-37); BILIRUBIN TOTAL 0.4 mg/dL (0.2-1.0); BLOOD UREA NITROGEN,BUN 17 mg/dL (7-18); CARBON DIOXIDE,CO2 28 mmol/L (21-32); CHLORIDE,CL 105 mmol/L (100-108); CREATININE 1.0 mg/dL (0.6-1.0); EST CRCL DRUG DOSING (CG) 39.39 mL/min; ESTIMATED GFR 57 mL/min (>60); GLUCOSE RANDOM 124 mg/dL (74-106); POTASSIUM,K 4.6 mmol/L (3.6-5.2); PROTEIN TOTAL,TP 6.4 g/dL (6.4-8.2); SODIUM,NA 140 mmol/L (140-148)
[2025-04-01] MEDS ORDERED: Acetaminophen/oxyCODONE 325-10 MG Tab PO PRN (02:21)
[2025-04-01] MEDS ORDERED: Sennosides/Docusate Sodium 50-8.6 MG Tab PO PRN (02:21)
[2025-04-01] MEDS ORDERED: Magnesium Hydroxide 400 MG/5 ML Susp 30 ML Cup PO PRN (02:21)
[2025-04-01 05:59] LABS: PLATELET COUNT,PLT 174.0 K/uL (130-375); RED BLOOD CELL COUNT 3.02 M/uL (3.77-5.24); WHITE BLOOD CELL COUNT,WBC 6.2 K/uL (3.2-11.0)
[2025-04-01 06:13] LABS: BLOOD UREA NITROGEN,BUN 14.0 mg/dL (7-18); CARBON DIOXIDE,CO2 27.0 mmol/L (21-32); CHLORIDE,CL 106.0 mmol/L (100-108); CREATININE 0.9 mg/dL (0.6-1.0); EST CRCL DRUG DOSING (CG) 43.77 mL/min; ESTIMATED GFR 65.0 mL/min (>60); GLUCOSE RANDOM 89.0 mg/dL (74-106); POTASSIUM,K 4.1 mmol/L (3.6-5.2); SODIUM,NA 140.0 mmol/L (140-148)
[2025-04-01] MEDS ORDERED: Hypromellose 0.3% Ophth Soln 15 ML Bottle EYEBOTH PRN (07:24)
[2025-04-01] MEDS: Hypromellose 0.3% Ophth Soln 15 ML Bottle EYEBOTH SCH (09:16)
[2025-04-01] MEDS: Pentoxifylline 400 MG Tab.ER PO SCH (09:17)
[2025-04-01] MEDS: CHECK FENTANYL PATCH TOP SCH (09:20)
[2025-04-01] MEDS: fentaNYL 50 MCG/HR Transdermal Patch TRDERM SCH (09:26)
[2025-04-01] MEDS ORDERED: fentaNYL 100 MCG/HR Transdermal Patch TOP SCH (11:00)
[2025-04-01] MEDS ORDERED: Hypromellose 0.3% Ophth Soln 15 ML Bottle EYEBOTH SCH (21:00)
[2025-04-01] MEDS: Mineral Oil/Petrolatum Ophth Oint 3.5 GM Tube EYEBOTH SCH (21:35)
[2025-04-02] MEDS ORDERED: Sodium Chloride 0.9% 10 ML Syringe IV PRN (09:51)
[2025-04-02 12:48] VITALS: BP 138/62; PULSE 80
== END 2025-04-02 13:27 | disposition home or self-care (01) | DRG 812 ==
LOC: JP.ED 21:45 → JP.ICU 04-01 00:25 → UNDOADMIN 04-01 00:25 → JP.ICU 04-01 02:15
PROVIDERS: ADMIT Registered Nurse; ATTEND Hospitalist
PROC: 30233N1 Transfusion of Nonautologous Red Blood Cells into Peripheral Vein, Percutaneous Approach (ICD-10-PCS; principal; 2025-03-31)
DX: D64.9 Anemia, unspecified (principal); K92.2 Gastrointestinal hemorrhage, unspecified; H26.9 Unspecified cataract; H54.7 Unspecified visual loss; K52.9 Noninfective gastroenteritis and colitis, unspecified; K59.09 Other constipation; F41.9 Anxiety disorder, unspecified; F32.A Depression, unspecified; G89.29 Other chronic pain; I73.9 Peripheral vascular disease, unspecified; I12.9 Hypertensive chronic kidney disease with stage 1 through stage 4 chronic kidney disease, or unspecified chronic kidney disease; N18.31 Chronic kidney disease, stage 3a; Z85.818 Personal history of malignant neoplasm of other sites of lip, oral cavity, and pharynx; Z98.890 Other specified postprocedural states; R19.5 Other fecal abnormalities; Z79.1 Long term (current) use of non-steroidal anti-inflammatories (NSAID); Z79.891 Long term (current) use of opiate analgesic; I10 Essential (primary) hypertension; Z79.82 Long term (current) use of aspirin; Z98.49 Cataract extraction status, unspecified eye; Z90.49 Acquired absence of other specified parts of digestive tract; Z90.710 Acquired absence of both cervix and uterus; Z93.1 Gastrostomy status; Z79.899 Other long term (current) drug therapy; Z88.8 Allergy status to other drugs, medicaments and biological substances
CPT/HCPCS: 36415; 36430; 80053; 82272; 85025; 86850; 86900; 86901; 86920; 86922; 99285; J2470; P9016; 80048; 85018; 85027; A9270-GY; J7030